=== PATIENT | female | born 1960 | race Caucasian/White ===

== ENCOUNTER 2019-03-07 05:59 | Inpatient (IN) ==
--- NOTE | 2019-02-20 16:28 | PAT Medication Instructions ---
Medication Instructions Date of Service February 20, 2019 Home Medications bupropion HCl 150 mg PO BID 02/18/19 [History Confirmed 02/18/19] clozapine 100 mg PO HS 02/18/19 [History Confirmed 02/18/19] omeprazole 20 mg PO QAM 02/18/19 [History Confirmed 02/18/19] sertraline 200 mg PO QAM 02/18/19 [History Confirmed 02/18/19] simvastatin 40 mg PO PM 02/18/19 [History Confirmed 02/18/19] topiramate 50 mg PO BID 02/18/19 [History Confirmed 02/18/19] Continue as directed bupropion HCl 150 mg PO BID 02/18/19 [History Confirmed 02/18/19] clozapine 100 mg PO HS 02/18/19 [History Confirmed 02/18/19] omeprazole 20 mg PO QAM 02/18/19 [History Confirmed 02/18/19] sertraline 200 mg PO QAM 02/18/19 [History Confirmed 02/18/19] simvastatin 40 mg PO PM 02/18/19 [History Confirmed 02/18/19] topiramate 50 mg PO BID 02/18/19 [History Confirmed 02/18/19] Other Notes If you have any questions please call us at [phone] or [phone] or [phone] or [phone]
--- NOTE | 2019-02-21 09:11 | Anesthesiology Consultation ---
Date of Service February 21, 2019 Assessment & Plan (1) Encounter for pre-operative examination: Chart Review Chart Review: Pending: Refer to Additional Notes / Consult section (pending preop testing (labs, EKG, CXR)) and Patient seen in Pre Admission Testing Teaching & Discussion Pre-Anesthesia Teaching/Discussion Notes: Instructed NPO after midnight before surgery,except medications with 15 cc of water. Medication instructions provid ed according to the PAT guidelines. History Surgery Operation Date: 03/07/19 07:45 Proposed Procedures p L3-S1 Decompression and Fusion with Spinal Cord Monitoring - Sean Kenney, Height/Weight Height: 5 ft 2 in Weight: 90.4 kg Allergies Allergy/AdvReac Type Severity Reaction Status Date / Time metoclopramide [From Reglan] Allergy Intermediate seizure-like Verified 02/21/19 09:07 activity Penicillins Allergy Mild Rash Verified 02/18/19 09:49 propoxyphene [From Darvon] Allergy Mild Rash Verified 02/18/19 09:49 Medications Home Medications Medication Instructions Recorded Confirmed Last Taken bupropion HCl 150 mg PO BID 02/18/19 02/18/19 Unknown clozapine 100 mg PO HS 02/18/19 02/18/19 Unknown omeprazole 20 mg PO QAM 02/18/19 02/18/19 Unknown sertraline 200 mg PO QAM 02/18/19 02/18/19 Unknown simvastatin 40 mg PO PM 02/18/19 02/18/19 Unknown topiramate 50 mg PO BID 02/18/19 02/18/19 Unknown Past Medical History Medical History Anxiety and depression Degenerative disc disease GERD (gastroesophageal reflux disease) controlled Hx of migraines Hyperlipidemia Neurogenic bladder hx requiring straight cath (no recent issues) Obesity Osteoarthritis Exercise / Class Metabolic Activity III < 4 Walking/Shop/Light housework Past Family History Family History Mother Family history of diabetes mellitus Grandmother (Paternal) Family hx of colon cancer Past Surgical History Surgical History History of appendectomy History of bilateral tubal ligation History of section History of cholecystectomy History of colonoscopy History of esophagogastroduodenoscopy (EGD) History of tooth extraction History of total knee replacement RT Past Anesthesia History No Hx of Anesthesia Complications and No Family Hx of Anesthesia Complications History of PONV No Hx of PONV and No Hx of Motion Sickness Social History Smoking Status: Never smoker Do You Dip or Chew Tobacco: No Hx Alcohol Use: No Hx Substance Use: No substance use type: does not use Review of Systems Reflux controlled. Patient denies chest pain, shortness of breath, cough, wheezing, palpitations. Physical Exam Vital Signs VITALS BP 120/83 P 83 TEMP 98.3 SP02 99%RA RESP 16 PHYSICAL Full neck and c-spine range of motion. Full TMJ range of motion. TMD 3 finger breaths Mallampati Score 3 Dentition: full dentures upper, edentulous Lungs: clear throughout to auscultation Cardiac: regular rate and rhythm, no murmurs noted Spine: normal Carotid arteries: negative bruit Extremities: no edema
[2019-02-21 10:12] LABS: Basophils # (auto) 0.01 K/uL (0-0.2); Basophils % (auto) 0.2 %; Hematocrit (blood only) 38.9 % (37-47); Hemoglobin 13.2 g/dL (12.0-16.0); Immature Granulocytes # (auto) 0.02 K/uL (0.00-0.02); Immature Granulocytes % (auto) 0.4 %; Lymphocytes % (auto) 34.3 %; Mean Corpuscular Hemoglobin 30.1 pg (25-34); Mean Corpuscular Hgb Conc 33.9 g/dL (32-36); Mean Corpuscular Volume 88.8 fL (80-100); Mean Platelet Volume 10.2 fL (7.4-10.4); Monocytes % (auto) 5.4 %; Neutrophils # (auto) 3.31 K/uL (1.4-6.5); Neutrophils % (auto) 59.7 %; Platelet Count 202 K/uL (130-400); RDW Coefficient of Variation 13.2 % (11.5-14.5); RDW Standard Deviation 43.1 fL (36.4-46.3); Red Blood Count 4.38 M/uL (4.2-5.4); White Blood Count 5.54 K/uL (4.8-10.8)
[2019-02-21 10:19] LABS: BUN Creatinine Ratio 14.5 (10-20); Creatinine Clr Calc Pharmacy 50.9 ml/min; Est GFR (African American) 54.4; Est GFR (Non-African American) 46.9; Potassium 3.9 mmol/L (3.5-5.1)
--- NOTE | 2019-02-21 10:29 | XRay Report ---
XR chest Pre-admission PA/Lat CLINICAL HISTORY: pat preoperative COMPARISON STUDY: No previous studies for comparison. FINDINGS: The bones soft tissues and hemidiaphragms are normal. The cardiomediastinal silhouette is n ormal. The lungs are clear. The pulmonary vasculature is normal. IMPRESSION: Negative chest. The above report was generated using voice recognition software. It may contain grammatical, syntax or spelling errors. Electronically signed by: Aiden Winchester M.D. 02/21/2019 10:28 AM
[2019-02-21 10:31] LABS: INR 0.9 (0.9-1.1); Partial Thromboplastin Ratio 0.9; Partial Thromboplastin Time 24.2 Seconds (21.0-31.0); Prothrombin Time 9.7 Seconds (9.0-12.0)
[2019-02-21 10:37] LABS: Appearance Urine Cloudy (Clear); Bacteria Urine Automated 1+ (Negative); Bilirubin Urine Negative (Negative); Blood Urine Negative (Negative); Color Urine Yellow; Epithelial Cell Urine Auto >30 /lpf (0-5); Glucose Urine UA Negative (Negative); Ketones Urine Negative (Negative); Leukocyte Esterase Urine Negative (Negative); Nitrite Urine Negative (Negative); Protein Urine Negative (Negative); RBC Urine Automated 0-4 /hpf (0-4); Urobilinogen Urine Negative (Negative); pH Urine 5.5 (4.5-7.5)
[2019-03-07] MEDS ORDERED: CeleBREX 200 MG CAP PO SCH (06:00)
[2019-03-07] MEDS ORDERED: CLINDAMYCIN 600 MG/54 ML BAG IV SCH (06:00)
[2019-03-07] MEDS ORDERED: ACETAMINOPHEN 500 MG TAB PO SCH (06:00)
[2019-03-07] MEDS ORDERED: LR 15ML/HR IV SCH (06:00)
[2019-03-07] MEDS ORDERED: GABAPENTIN 600 MG DOSE PO SCH (06:00)
[2019-03-07] MEDS ORDERED: fentaNYL citrate 100 MCG/2 ML VIAL ONE ×5 (06:49→10:34)
[2019-03-07] MEDS ORDERED: MIDAZOLAM HCL 1 MG/ML 2ML VIAL ONE (06:49)
[2019-03-07] MEDS ORDERED: HYDROmorphone INJ 2 MG/ML SYR/VIAL ONE ×2 (06:49→08:18)
[2019-03-07] MEDS ORDERED: BACITRACIN INJ 50,000 UNIT VIAL ONE (06:51)
[2019-03-07] MEDS ORDERED: EPINEPHrine INJ 1 MG/ML AMP ONE (06:52)
[2019-03-07] MEDS ORDERED: BUPIVACAINE 0.5 % 5 MG/1 ML MPF 30ML VIAL ONE (06:52)
[2019-03-07] MEDS ORDERED: ONDANSETRON INJ 2 MG/ML 2 ML VIAL IV PRN ×2 (07:17→12:40)
[2019-03-07] MEDS ORDERED: ATROPINE SULFATE 0.1 MG/ML 10ML SYR IV PRN (07:17)
[2019-03-07] MEDS ORDERED: ePHEDrine sulfate 50 MG/ML AMP IV PRN (07:17)
[2019-03-07] MEDS ORDERED: fentaNYL citrate 100 MCG/2 ML VIAL IV PRN (07:17)
[2019-03-07] MEDS ORDERED: HYDROmorphone INJ 2 MG/ML SYR/VIAL IV PRN (07:17)
--- NOTE | 2019-03-07 07:25 | History & Physical Bridge Note ---
Date of Service March 07, 2019 History & Physical Bridge Note I have examined the patient, reviewed the History & Physical and in the interval since the performance of the History & Physical I have noted the following changes of clinical significance: no changes noted
--- NOTE | 2019-03-07 07:27 | History & Physical Report ---
Date of Service March 07, 2019 Assessment & Plan (1) Neurogenic claudication due to lumbar spinal stenosis: Decompression fusion L3-S1 Present on Admission?: Yes History of Present Illness Chief Complaint: Back and bilateral leg pain Primary Care Provider: REENA Landeros This is a 50-year-old female that presents with back and bilateral leg pain. After failing extensive course of nonoperative care she is here for surgical intervention. Allergies Allergy/AdvReac Type Severity Reaction Status Date / Time metoclopramide [From Reglan] Allergy Intermediate seizure-like Verified 03/07/19 06:58 activity Penicillins Allergy Mild Rash Verified 03/07/19 06:58 propoxyphene [From Darvon] Allergy Mild Rash Verified 03/07/19 06:58 Home Medications Home Medications Medication Instructions Recorded Confirmed Type bupropion HCl 150 mg PO BID 02/18/19 03/07/19 History clozapine 100 mg PO HS 02/18/19 03/07/19 History omeprazole 20 mg PO QAM 02/18/19 03/07/19 History sertraline 200 mg PO QAM 02/18/19 03/07/19 History simvastatin 40 mg PO PM 02/18/19 03/07/19 History topiramate 50 mg PO BID 02/18/19 03/07/19 History Past Med/Surg History Family History Mother Family history of diabetes mellitus Grandmother (Paternal) Family hx of colon cancer Social History Preferred Language: Egyptian Communication Ability: Effective Client Care Consultant Required: No Beliefs That Will Affect Care: None Current Living Situation: Alone Other Information That Helps Us Care for You: No Feels Safe at Home: Yes Safety Concerns: Feels Safe At This Time Smoking Status: Never smoker Do You Dip or Chew Tobacco: No ; Second Hand Exposure: No ; Tobacco Cessation Education Requested by Patient: No Hx Alcohol Use: No Hx Substance Use: No Physical Exam Physical Exam: Patient is alert and oriented neurologically intact Results & Data Vital Signs (Past 12 Hours) Vital Signs Temp Pulse Resp BP Pulse Ox 03/07/19 07:00 36.9 C 87 18 125/79 95
[2019-03-07] MEDS ORDERED: LARYING-O-JET KIT (LTA) ONE (08:19)
[2019-03-07] MEDS ORDERED: ePHEDrine sulfate 50 MG/ML SYR ONE (08:19)
[2019-03-07] MEDS ORDERED: PROPOFOL IV EMULSION 10 MG/ML 20 ML VIAL IV ONE (08:19)
[2019-03-07] MEDS ORDERED: ONDANSETRON INJ 2 MG/ML 2 ML VIAL ONE (08:19)
[2019-03-07] MEDS ORDERED: NEOSTIGMINE METHYLSULFATE 1 MG/ML 10ML VIAL ONE (08:19)
[2019-03-07] MEDS ORDERED: DEXAMETHASONE SOD INJ 4 MG/ML VIAL ONE (08:19)
[2019-03-07] MEDS ORDERED: ROCURONIUM BROMIDE 10 MG/ML 5 ML VIAL ONE (08:19)
[2019-03-07] MEDS ORDERED: PHENYLEPHRINE 100MCG/ML 5ML SYR ONE (08:19)
[2019-03-07] MEDS ORDERED: LIDOCAINE HCL 2% 2 ML VIAL/AMP(20MG/ML) INFIL ONE (08:19)
[2019-03-07] MEDS ORDERED: GLYCOPYRROLATE 0.2 MG/ML VIAL ONE (08:19)
[2019-03-07] MEDS ORDERED: FLOSEAL HEMOSTATIC MATRIX 10ML TOP ONE (08:20)
[2019-03-07] MEDS ORDERED: ALBUMIN HUMAN 5% 12.5 GM/250 ML VIAL IV ONE (09:44)
[2019-03-07] MEDS ORDERED: SURGICEL ABSORB HEMOSTAT 2IN X 14IN TOP ONE (09:59)
--- NOTE | 2019-03-07 10:11 | Operative Report ---
Post Operative Report Pre & Post Diagnosis Operation Date: 03/07/19 07:45 Pre-Op Diagnosis: LUMBAR SPINAL STENOSIS W/NEUROGENIC CLAUDICATION Post-Op Diagnosis: LUMBAR SPINAL STENOSIS W/NEUROGENIC CLAUDICATION I identified the patient and participated in the time-out.: Yes Procedure Operation Date: 03/07/19 07:45 Actual Procedures #1 lumbar decompression bilateral medial facetectomies foraminotomies L2-3 L3-4 L4-5. #2 posterior spinal fusion L3-4 L4-5 L5-S1. #3 placement posterior segmental instrumentation L3-S1. #4 interbody fusion L3-4 L4-5 per #5 placed a peek cage 9 x 22 mm at L3-4 and 12 x 22 mm at L4-5. #6 placement of locally harvested morselized autograft in the posterior lateral gutters. #7 placement infuse collagen sponge, master graft in the posterior lateral gutters and ostial amp and interbody space. Surgeon Sean Kenney, DO Balance Screwhead Polisher Erik Cortes Estimated Blood Loss 525 Findings See Below The patient is 5 foot 2 inches tall weighing over 91 kg with a BMI in excess of 36. This combined with an EBL of greater than 500 cc created significant technical difficulty. She did require her deepest retractors and longest instruments in order to perform her procedure. This added at least 25% increase in operative time. Specimens None Indications This is a 50-year-old female who presents with above-mentioned diagnosis after failing extensive course of nonoperative care is here for surgical intervention. Description of Procedure Patient was met with identified and informed consent obtained. Patient was then taken to the operative suite underwent intubation placed in the prone position the Matthew table on top of the Matthew frame. All bony prominences well-padded eyes inspected to ensure no external pressure placed upon the peer at this point the lumbar spine was prepped and draped in a sterile fashion. Sharp dissection with the assistance of Bovie cautery was performed down to and exposing the lamina and transverse processes of L3-L4-L5 and the sacral ala bilaterally. From a caudal to cephalad fashion complete laminectomy of L4 L3 and partial laminectomy of L2 was performed including bilateral medial facetectomies and foraminotomies addressing severe stenosis. Pedicle screws were then placed in L3-L4-L5 and S1 levels bilaterally with assistance of fluoroscopy and the probably size carter placed. By way of a transforaminal approach and left complete discectomy of L4-5 was performed endplates curetted to subcortical being bone and a 12 x 22 mm peek cage filled with ostium bone graft tapped in position. Then proceeded to L3-[address] of a transforaminal approach and left complete discectomy performed endplates curetted to subcortical being bone and a 9 x 22 mm peek cage with ostium bone graft tapped in position. The rods were locked in final position bilaterally. The transverse processes of L3-L4-L5 and sacral ala bur to subcortical bleeding bone. Infuse collagen sponge master graft and local autograft placed in the posterior lateral gutters. 15 round VERENICE drain inserted. Incision was then closed with 1 Vicryl fascia 2-0 Vicryl subcutaneous and 4 Monocryl for final skin closure. Steri-Strip sterile dressing placed. Patient will continue to PACU stable disc. Please note Erik Cortes present throughout the entire procedure involved the patient positioning complex portions of the surgery and final skin closure. Lastly spinal cord monitoring was utilized that the procedure no changes noted. I attest to the content of the Intraoperative Record and any orders documented therein. Any exceptions are noted below.
--- NOTE | 2019-03-07 10:21 | Fluoroscopy Report ---
FL lumbar spine 2-3V CLINICAL HISTORY: L3-S1 DECOMPRESSION AND FUSION COMPARISON STUDY: None FLUOROSCOPY TIME: 21 seconds NUMBER OF FLUOROSCOPIC IMAGES: 2 FINDINGS: Image intensifier was utilized for intraoperative assistance for a fusion of the mid to low er lumbar spine IMPRESSION: Image intensifier utilization for lumbar laminectomy and fusion from L3 through S1. The above report was generated using voice recognition software. It may contain grammatical, syntax or spelling errors. Electronically signed by: Aiden Winchester M.D. 03/07/2019 10:20 AM
--- NOTE | 2019-03-07 11:38 | Anesthesiology Progress Note ---
Date of Service March 07, 2019 Anesthesia Post Procedure Vital Signs Vital Signs: Temp Pulse Pulse Resp BP Pulse Ox 03/07/19 11:25 83 13 121/76 95 03/07/19 11:15 86 12 118/75 95 03/07/19 11:05 85 13 121/72 98 03/07/19 10:55 94 H 12 116/80 93 03/07/19 10:45 91 H 12 116/75 93 03/07/19 10:39 37.0 C 81 19 104/69 93 03/07/19 07:00 36.9 C 87 18 125/79 95 Pain Intensity Lower Back: Pain Intensity: 5 Transfer of Care Handoff Completed per policy Notes Mental Status: alert / awake / arousable and participated in evaluation Patient Amnestic to Procedure: Yes Nausea / Vomiting: adequately controlled Pain: improving with treatment Airway Patency, RR, SpO2: stable & adequate BP & HR: stable & adequate Hydration State: stable & adequate Anesthetic Complications: no major complications apparent and Pt Satisfied with anesthetic care
[2019-03-07] MEDS ORDERED: SOD PHOSPHATE/SOD BIPHOSPHATE ENEMA 132 ML BTL PR PRN (12:40)
[2019-03-07] MEDS ORDERED: ONDANSETRON 4 MG OD TAB PO PRN (12:40)
[2019-03-07] MEDS ORDERED: PROMETHAZINE HCL 12.5 MG in SODIUM CHLORIDE 0.9% 50 ML IV PRN (12:40)
[2019-03-07] MEDS ORDERED: MAGNESIUM HYDROXIDE SUSP 30 ML UDC PO PRN (12:40)
[2019-03-07] MEDS ORDERED: HYDROmorphone INJ 0.5 MG/0.5 ML SYR IV PRN (12:40)
[2019-03-07] MEDS ORDERED: ALUMINUM/MAGNESIUM SUSP 30 ML UDC PO PRN (12:40)
[2019-03-07] MEDS ORDERED: bisacodyL 10 MG SUPP PR PRN (12:40)
[2019-03-07] MEDS ORDERED: DO NOT ADMINISTER FLU VACCINE PRN (12:40)
[2019-03-07] MEDS ORDERED: DO NOT ADMINISTER PNEUMOCOCCAL VACCINE PRN (12:40)
[2019-03-07] MEDS ORDERED: ACETAMINOPHEN 1,000 MG/100 ML VIAL IV PRN (12:40)
[2019-03-07] MEDS ORDERED: HYDROmorphone INJ 1 MG/ML SYRINGE IV PRN (12:40)
[2019-03-07] MEDS ORDERED: LORazepam 0.5 MG TAB PO PRN (12:40)
[2019-03-07] MEDS ORDERED: FAMOTIDINE 20 MG TAB PO PRN (12:40)
[2019-03-07] MEDS ORDERED: LORazepam 0.5 MG/1 ML VIAL IV PRN (12:40)
[2019-03-07] MEDS ORDERED: NALOXONE HCL 0.4 MG/1 ML VIAL/CARP IV PRN (12:40)
[2019-03-07] MEDS: SODIUM CHLORIDE 0.9% 1000ML 1,000 ML IV SCH ×2 (13:39→23:52)
--- NOTE | 2019-03-07 14:02 | Consultation ---
Date of Consultation March 07, 2019 Assessment & Plan (1) Neurogenic claudication due to lumbar spinal stenosis: S/P Lumbar Decompression/Fusion L3-S1 by Dr. Kenney POD #0 EBL 525ml, VERENICE drain 140ml tolerated procedure well: post operative somnolence due to sedation pain/wound management per ortho activity and therapy as directed by ortho bowel regimen per ortho incentive spirometry Q1hwa, wean off O2 as able Monitor H/H; Pre op H/H 13.2/38.9 (2) Bipolar depression: mood stable continue buproprion, sertraline, topamax, clozapine monitor cbc for clozapine (3) Hyperlipidemia: continue statin (4) GERD (gastroesophageal reflux disease): continue PPI (5) Obesity: BMI 36.8 encourage lifestyle modifications (6) DVT prophylaxis: SCD/TEDS Disposition: admitted to med/surg; per ortho Follow up: PCP Sis Mcgee PA-C upon discharge Pt was seen and examined in collaboration with Dr. Raymundo, please see addendum Starting 03/08/19 pt will be followed by Dr. Lee Thank you for this consultation. We will follow the patient with you during their hospital stay. You can reach a member of the [facility]ist Team 06/11 via pager @ [phone]. Supervising Physician Co-Signing Physician Notes Attending addendum: The patient was seen and examined in medical floor This is a 58 yr old F who has significant PMH of VIOLETTE intolerant to CPAP, HLD, CKD 3, Bipolar d/o who presents to [facility] for elective lumbar procedure by Dr. Kenney. She is a status post L3-S1 lumbar decompression and fusion, POD #0 She remains very drowsy but otherwise hemodynamically stable following surgery Denies any significant symptoms On examination No apparent distress at rest Chest-decreased breath sounds but otherwise clear Heart-S1-S2, regular Abdomen-benign Extremities-no edema but she cannot feel it yet Her preop labs, EKG and imaging studies reviewed She remains medically stable following surgery Agree with assessment and plan as outlined above by TERRY Mckeon Dr History of Present Illness Requesting Physician: Dr. Kenney Reason for Consultation: Post op medical management Attending Physician: Sean Kenney, DO History of Present Illness This is a 58 yr old F who has significant PMH of VIOLETTE intolerant to CPAP, HLD, CKD 3, Bipolar d/o who presents to [facility] for elective lumbar procedure by Dr. Kenney. Pt failed conservative non operative course 2/2 to lumbar spinal stenosis with neurogenic claudication. Pt is very drowsy but comfortable post operatively. ROS limited due to patient being drowsy. She does answer questions appropriately to verbal and tactile stimulation. Mild incisional pain. Denies chest pain, sob, cough, f/c/s, dizziness, n/v/d, abdominal pain. She has not had anything to eat or drink post operatively due to drowsiness. Nurse offers no other post operative complaints. Pt past medical records were reviewed in [facility]. Allergies Allergy/AdvReac Type Severity Reaction Status Date / Time metoclopramide [From Reglan] Allergy Intermediate seizure-like Verified 03/07/19 06:58 activity Penicillins Allergy Mild Rash Verified 03/07/19 06:58 propoxyphene [From Darvon] Allergy Mild Rash Verified 03/07/19 06:58 Home Medications Home Medications Medication Instructions Recorded Confirmed Type bupropion HCl 150 mg PO BID 02/18/19 03/07/19 History clozapine 100 mg PO HS 02/18/19 03/07/19 History omeprazole 20 mg PO QAM 02/18/19 03/07/19 History sertraline 200 mg PO QAM 02/18/19 03/07/19 History simvastatin 40 mg PO PM 02/18/19 03/07/19 History topiramate 50 mg PO BID 02/18/19 03/07/19 History Patient History Medical History (Updated 03/07/19 @ 13:58 by Funmi Pringle PA-C) Anxiety and depression Bipolar depression Degenerative disc disease GERD (gastroesophageal reflux disease) controlled Hx of migraines Hyperlipidemia Neurogenic bladder hx requiring straight cath (no recent issues) Obesity Osteoarthritis Surgical History History of appendectomy History of bilateral tubal ligation History of section History of cholecystectomy History of colonoscopy History of esophagogastroduodenoscopy (EGD) History of tooth extraction History of total knee replacement RT Family History Mother Family history of diabetes mellitus Grandmother (Paternal) Family hx of colon cancer Social History Preferred Language: Swedish Communication Ability: Effective 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: No Beliefs That Will Affect Care: None Current Living Situation: Alone Other Information That Helps Us Care for You: No Feels Safe at Home: Yes Safety Concerns: Feels Safe At This Time Smoking Status: Never smoker Do You Dip or Chew Tobacco: No ; Second Hand Exposure: No ; Tobacco Cessation Education Requested by Patient: No Hx Alcohol Use: No Hx Substance Use: No Review of Systems Review of Systems: All systems reviewed & are unremarkable except as noted in HPI & below Physical Exam Physical Exam: Constitutional: WD/WN, vitals as above, obese, F, lying in bed, very drowsy, arousable to tactile and verbal stimulation, easy to arouse but ease to fall back asleep, NAD Head: Normocephalic, Atraumatic Eyes: PERRL, conjunctivae normal, anicteric sclerae ENMT: external ear and nose normal, oropharynx dry mucous membranes Neck: trachea midline, no thyromegaly normal visual inspection Respiratory: normal respiratory effort, lungs clear to auscultation, no wheeze, rales, rhonchi. Normal insp/exp effort, no accessory muscle use on O2 via NC 3L @ 99% Cardiovascular: RRR, no murmur, no edema Vessels: no JVD or carotid bruit Chest: normal inspection of chest Abdomen: normal bowel sounds, soft, nontender, no hepatosplenomegaly Musculoskeletal: no cyanosis or clubbing, extremities motor strength no assess due to pt somnolence, SCD/TEDS in place, active ROM x 4 Skin: no rashes, warm and dry normal turgor Neurologic: PERRL, EOMI, accommodation nl, no face palsy, no dysarthria CN's II-XI intact bilaterally and moves all extremities Psychiatric: A+Ox3, drowsy affect Lymphatic: no cervical or axillary lymphadenopathy : holt - draining clear yellow urine Results & Data Vital Signs (Past 12 Hours) Vital Signs Temp Pulse Pulse Resp BP Pulse Ox 03/07/19 13:29 36.4 C L 64 14 103/64 98 03/07/19 12:47 36.3 C L 76 14 108/68 98 03/07/19 11:55 36.7 C 80 14 112/68 96 03/07/19 11:45 84 12 106/75 96 03/07/19 11:35 36.2 C L 81 12 116/70 96 03/07/19 11:25 83 13 121/76 95 03/07/19 11:15 86 12 118/75 95 03/07/19 11:05 85 13 121/72 98 03/07/19 10:55 94 H 12 116/80 93 03/07/19 10:45 91 H 12 116/75 93 03/07/19 10:39 37.0 C 81 19 104/69 93 03/07/19 07:00 36.9 C 87 18 125/79 95 Laboratory Results 02/21/19 pre operative lab work H/H 13.2/38.9, wbc 5.54, plt 202 CMP Na 143, K 3.9, Chl 114, Co2 23, Bun 18, Cr 1.26 Diagnostic Findings pre op CXR: IMPRESSION: Negative chest. Lumbar Spine Xray: IMPRESSION: Image intensifier utilization for lumbar laminectomy and fusion from L3 through S1 Medications Administered Sodium Chloride (Nss 1000ml) 1,000 mls @ 100 mls/hr IV .Q10H JODI Stop: 04/06/19 13:14 Last Admin: 03/07/19 13:39 Dose: 100 mls/hr Documented by: [id number] Discontinued Medications Acetaminophen (Tylenol) 1,000 mg PO PREOP JODI Stop: 03/07/19 18:00 Last Admin: 03/07/19 07:25 Dose: 1,000 mg Documented by: [id number] Bacitracin (Bacitracin) Confirm Administered Dose 50,000 units .ROUTE .STK-MED ONE Stop: 03/07/19 06:52 Last Admin: 03/07/19 08:17 Dose: 50,000 units Documented by: [id number] Bupivacaine HCl (Marcaine 0.5% Mpf) Confirm Administered Dose 30 ml .ROUTE .STK- MED ONE Stop: 03/07/19 06:53 Last Admin: 03/07/19 08:16 Dose: 30 ml Documented by: [id number] Celecoxib (Celebrex) 200 mg PO PREOP JODI Stop: 03/07/19 18:00 Last Admin: 03/07/19 07:25 Dose: 200 mg Documented by: [id number] Epinephrine HCl (Epinephrine) Confirm Administered Dose 1 mg .ROUTE .STK-MED ONE Stop: 03/07/19 06:53 Last Admin: 03/07/19 08:16 Dose: 0.15 mg Documented by: [id number] Gabapentin (Neurontin) 600 mg PO PREOP JODI Stop: 03/07/19 18:00 Last Admin: 03/07/19 07:25 Dose: 600 mg Documented by: [id number] Lactated Ringer's (Lr) 1,000 mls @ 15 mls/hr IV .Q24H JODI Stop: 03/08/19 05:59 Last Infusion: 03/07/19 07:45 Dose: 0 mls/hr Documented by: [id number] Admin: 03/07/19 07:24 Dose: 15 mls/hr Documented by: [id number] Clindamycin Phosphate (Cleocin) 600 mg in 54 mls @ 100 mls/hr IV PREOP JODI Stop: 03/08/19 05:59 Last Infusion: 03/07/19 13:01 Dose: 0 mls/hr Documented by: [id number] Admin: 03/07/19 07:44 Dose: 100 mls/hr Documented by: [id number] Miscellaneous (Floseal Hemostatic Matrix 10ml) 20 ml TOP ONCE ONE Stop: 03/07/19 08:21 Last Admin: 03/07/19 10:01 Dose: 20 ml Documented by: [id number] Miscellaneous (Surgicel Absorb Hemostat 2in X 14in) 1 ea TOP ONCE ONE Stop: 03/07/19 10:00 Last Admin: 03/07/19 10:01 Dose: 1 ea Documented by: [id number] ECG Rate (beats per minute): 77 Rhythm: normal sinus
[2019-03-07] MEDS: KETOROLAC TROMETHAMINE 15 MG/ML VIAL IV SCH ×2 (14:09→20:10)
[2019-03-07] MEDS: CLINDAMYCIN 600 MG in DEXTROSE 5% 50 ML IV SCH ×2 (16:20→23:52)
[2019-03-07] MEDS: TOPIRAMATE 50 MG TAB PO SCH (20:09)
[2019-03-07] MEDS: DOCUSATE SODIUM/SENNA 50/8.6MG TAB PO SCH (20:09)
[2019-03-07] MEDS: SIMVASTATIN 40 MG TAB PO SCH (20:10)
[2019-03-07] MEDS: BuPROPion SR 150 MG TABCR PO SCH (20:10)
[2019-03-07] MEDS: cloZAPine 100 MG TAB PO SCH (20:10)
[2019-03-08] MEDS: KETOROLAC TROMETHAMINE 15 MG/ML VIAL IV SCH ×2 (01:41→08:19)
[2019-03-08] MEDS: POLYETHYLENE (MIRALAX) 17 GM PACK PO SCH ×4 (05:20→23:29)
[2019-03-08] MEDS ORDERED: Nursing to Pharmacy Communication ONE (05:41)
[2019-03-08 05:51] LABS: Hematocrit (blood only) 28.8 % (37-47); Hemoglobin 9.6 g/dL (12.0-16.0); Immature Granulocytes # (auto) 0.03 K/uL (0.00-0.02); Immature Granulocytes % (auto) 0.4 %; Lymphocytes # (auto) 1.37 K/uL (1.2-3.4); Lymphocytes % (auto) 17.7 %; Mean Corpuscular Hgb Conc 33.3 g/dL (32-36); Mean Platelet Volume 10.3 fL (7.4-10.4); Monocytes # (auto) 0.54 K/uL (0.11-0.59); Neutrophils % (auto) 74.9 %; Platelet Count 182 K/uL (130-400); RDW Coefficient of Variation 13.4 % (11.5-14.5); RDW Standard Deviation 44.5 fL (36.4-46.3); White Blood Count 7.74 K/uL (4.8-10.8)
[2019-03-08 06:24] LABS: BUN Creatinine Ratio 13.2 (10-20); Calcium 8.3 mg/dl (8.5-10.1); Creatinine Clr Calc Pharmacy 61.9 ml/min; Est GFR (African American) 68.6; Est GFR (Non-African American) 59.2
[2019-03-08] MEDS: TOPIRAMATE 50 MG TAB PO SCH ×2 (08:19→20:11)
[2019-03-08] MEDS: BuPROPion SR 150 MG TABCR PO SCH ×2 (08:19→20:11)
[2019-03-08] MEDS: SERTRALINE HCL 100 MG TABLET PO SCH (08:19)
[2019-03-08] MEDS: PANTOprazole 40 MG TAB PO SCH (08:20)
--- NOTE | 2019-03-08 08:54 | Orthopedic Progress Note ---
Date of Service March 08, 2019 Assessment & Plan (1) Neurogenic claudication due to lumbar spinal stenosis: Overall she is doing well postoperative day 1 status post lumbar decompression fusion. We will start physical therapy today. DVT prophylaxis is in the form of teds and SCDs. Continue with pain control. Anticipate discharge home on Sunday. Supervising Physician Co-Signing Physician Notes Dr. Sean Kenney Alcides Aparicio is postoperative day 1 lumbar decompression fusion. She is doing well. She had an uneventful night. VERENICE drain total output 350 cc. H&H 9.6 and 28.8 respectively. Leg pain greatly improved. Back pain is controlled. Review of Systems Review of Systems: All systems reviewed & are unremarkable except as noted in HPI & below Physical Exam Physical Exam: Lying in bed. No obvious distress. Alert and oriented x3. Lumbar dressing is clean dry and intact. Calves soft nontender bilaterally. Strength intact bilateral lower extremities. Constitutional: WD/WN, vitals as above Eyes: normal visual gutierrez by confrontation ENMT: external ear and nose normal, oropharynx normal Neck: normal visual inspection Respiratory: normal respiratory effort Cardiovascular: Vessels: dorsalis pedis pulses present Extremities: normal capillary refill Gastrointestinal (Abdomen): Inspection/Auscultation: abdomen normal to inspection Musculoskeletal: Extremities: extremities normal to inspection and strength 5/5 throughout Skin: no rashes, warm and dry Neurologic: patellar DTR's 2+ bilat, sensation intact normal touch/pain/proprioception and moves all extremities Psychiatric: A+Ox3, euthymic affect Speech: normal rate/rhythm/volume of speech Results & Data Vital Signs (Past 12 Hours) Vital Signs Temp Pulse Resp BP Pulse Ox 03/08/19 07:40 36.4 C L 84 18 102/69 92 03/08/19 03:19 36.4 C L 71 16 100/67 92 03/07/19 23:54 36.4 C L 74 12 105/69 93
[2019-03-08] MEDS: OXYCODONE HCL IR 5 MG TAB (IMMEDIATE RELEASE) PO PRN (10:54)
--- NOTE | 2019-03-08 14:38 | Anesthesiology Progress Note ---
Date of Service March 08, 2019 Anesthesia Post Procedure Vital Signs Vital Signs: Temp Pulse Resp BP Pulse Ox 03/08/19 12:12 36.4 C L 81 18 96/67 L 93 03/08/19 07:40 36.4 C L 84 18 102/69 92 03/08/19 03:19 36.4 C L 71 16 100/67 92 03/07/19 23:54 36.4 C L 74 12 105/69 93 03/07/19 19:42 36.3 C L 79 18 100/65 95 03/07/19 15:09 36.4 C L 18 102/66 99 Pain Intensity Lower Back: Pain Intensity: 2 Notes Mental Status: alert / awake / arousable Patient Amnestic to Procedure: Yes Nausea / Vomiting: adequately controlled Pain: adequately controlled Airway Patency, RR, SpO2: stable & adequate BP & HR: stable & adequate Hydration State: stable & adequate Anesthetic Complications: no major complications apparent and Pt Satisfied with anesthetic care
[2019-03-08] MEDS: TRAMADOL HCL 50 MG TABLET PO PRN ×2 (16:23→20:15)
--- NOTE | 2019-03-08 18:34 | Hospitalist Progress Note ---
Date of Service March 08, 2019 Assessment & Plan (1) Neurogenic claudication due to lumbar spinal stenosis: S/P lumbar decompression /fusion. Doing well postop. (2) GERD (gastroesophageal reflux disease): Continue PPI. (3) Hyperlipidemia: Continue simvastatin. (4) Bipolar depression: Continue usual meds. (5) DVT prophylaxis: Per Ortho protocol. (6) Encounter for consultation: Thank you for this consultation. We will follow the patient with you during their hospital stay. My cell # is [phone]. You can reach a member of the [facility] Medicine Team 06/11 via pager @ [phone]. Subjective Recheck for postoperative medical management. Patient seen in their room around 1530. Having some postop pain. No chest pain. No cough or SOB. No nausea or vomiting. Not passing any flatus or stool yet. Torrez cath removed this morning; not voiting yet. Review of Systems: As noted above. Physical Exam Constitutional: no acute distress Respiratory: no respiratory distress Auscultation: lungs clear to auscultation bilaterally Cardiovascular: Rate/Rhythm: regular rate and regular rhythm Heart Sounds: no gallop and no cardiac rub Vessels: no JVD Extremities: no calf tend erness and no edema Gastrointestinal (Abdomen): normal bowel sounds, soft, nontender, no hepatosplenomegaly Musculoskeletal: Extremities: extremities normal to inspection (TEDS applied) Skin: no rashes, warm and dry Psychiatric: Orientation: alert and oriented x 3 Results & Data Vital Signs (Past 12 Hours) Vital Signs Temp Pulse Resp BP Pulse Ox 03/08/19 15:15 36.6 C 81 17 116/74 99 03/08/19 12:12 36.4 C L 81 18 96/67 L 93 03/08/19 07:40 36.4 C L 84 18 102/69 92 Laboratory Results 03/08/19 05:04 03/08/19 05:04
[2019-03-08] MEDS: DOCUSATE SODIUM/SENNA 50/8.6MG TAB PO SCH (20:11)
[2019-03-08] MEDS: cloZAPine 100 MG TAB PO SCH (20:11)
[2019-03-08] MEDS: SIMVASTATIN 40 MG TAB PO SCH (20:11)
[2019-03-08] MEDS ORDERED: LACTATED RINGER'S 1,000 ML IV ONE (20:24)
[2019-03-09] MEDS: POLYETHYLENE (MIRALAX) 17 GM PACK PO SCH ×4 (05:52→23:39)
[2019-03-09] MEDS: ACETAMINOPHEN 500 MG TAB PO PRN (05:56)
--- NOTE | 2019-03-09 08:48 | Orthopedic Progress Note ---
Date of Service March 09, 2019 Assessment & Plan (1) Neurogenic claudication due to lumbar spinal stenosis: We will continue physical therapy today. Maintain VERENICE drain and dressing. Continue with aggressive bowel regimen. I have put in for a CBC with differential and a Chem-7. We will consider further work-up if drowsiness continues throughout the day. Supervising Physician Co-Signing Physician Notes Dr. Sean Kenney Subjective Patient is postoperative day 2 lumbar decompression fusion. Biggest issue for the past 24 hours has been drowsiness. She is easily arousable and alert and oriented and appropriate. She is ambulatory. She did well in physical therapy yesterday. Has modest pain. She is taking Tylenol only for pain control. VERENICE drain intact. Passing flatus no bowel movement. Review of Systems Review of Systems: All systems reviewed & are unremarkable except as noted in HPI & below Physical Exam Constitutional: WD/WN, vitals as above Eyes: normal visual gutierrez by confrontation ENMT: external ear and nose normal, oropharynx normal Neck: normal visual inspection Respiratory: normal respiratory effort Cardiovascular: Vessels: dorsalis pedis pulses present Extremities: normal capillary refill Gastrointestinal (Abdomen): Inspection/Auscultation: abdomen normal to inspection Musculoskeletal: Extremities: extremities normal to inspection and strength 5/5 throughout Skin: no rashes, warm and dry Neurologic: patellar DTR's 2+ bilat, sensation intact normal touch/pain/proprioception and moves all extremities Psychiatric: A+Ox3, euthymic affect Speech: normal rate/rhythm/volume of speech Results & Data Vital Signs (Past 12 Hours) Vital Signs Temp Pulse Pulse Resp BP Pulse Ox 03/09/19 06:30 36.4 C L 108 H 20 116/77 93 03/08/19 22:58 37.6 C H 97 H 18 103/64 91
[2019-03-09 09:04] LABS: Basophils # (auto) 0.01 K/uL (0-0.2); Basophils % (auto) 0.1 %; Hematocrit (blood only) 29.4 % (37-47); Hemoglobin 9.8 g/dL (12.0-16.0); Immature Granulocytes # (auto) 0.03 K/uL (0.00-0.02); Immature Granulocytes % (auto) 0.3 %; Lymphocytes # (auto) 2.22 K/uL (1.2-3.4); Lymphocytes % (auto) 24.8 %; Mean Corpuscular Hemoglobin 30.2 pg (25-34); Mean Corpuscular Hgb Conc 33.3 g/dL (32-36); Mean Corpuscular Volume 90.5 fL (80-100); Mean Platelet Volume 9.4 fL (7.4-10.4); Monocytes # (auto) 0.51 K/uL (0.11-0.59); Monocytes % (auto) 5.7 %; Neutrophils # (auto) 6.18 K/uL (1.4-6.5); Neutrophils % (auto) 69.1 %; Platelet Count 198 K/uL (130-400); RDW Coefficient of Variation 13.8 % (11.5-14.5); RDW Standard Deviation 45.7 fL (36.4-46.3); Red Blood Count 3.25 M/uL (4.2-5.4); White Blood Count 8.95 K/uL (4.8-10.8)
[2019-03-09 09:37] LABS: BUN Creatinine Ratio 11.5 (10-20); Calcium 8.7 mg/dl (8.5-10.1); Creatinine Clr Calc Pharmacy 48.8 ml/min; Est GFR (African American) 51.4; Est GFR (Non-African American) 44.4
[2019-03-09] MEDS: PANTOprazole 40 MG TAB PO SCH (09:51)
[2019-03-09] MEDS: SERTRALINE HCL 100 MG TABLET PO SCH (11:01)
[2019-03-09] MEDS: BuPROPion SR 150 MG TABCR PO SCH ×2 (11:01→20:13)
[2019-03-09] MEDS: TOPIRAMATE 50 MG TAB PO SCH ×2 (11:01→20:13)
[2019-03-09] MEDS ORDERED: TRAMADOL HCL 50 MG TABLET PO PRN (11:49)
--- NOTE | 2019-03-09 20:04 | Hospitalist Progress Note ---
Date of Service March 09, 2019 Assessment & Plan (1) Neurogenic claudication due to lumbar spinal stenosis: S/P lumbar decompression /fusion. Doing well postop. (2) GERD (gastroesophageal reflux disease): Continue PPI. (3) Hyperlipidemia: Continue simvastatin. (4) Bipolar depression: Continue usual meds. (5) Somnolence: Experiencing some somnolence. O2 sats OK. No significant lab abnormalities. Reviewed home meds and she seems to be on usual regimen. Somnolence may be due to analgesics. Tramadol dose decreased to 50 mg PRN. (6) Urinary retention: Postop urinary retention. Had problems with urinary retention years ago, requiring intermittent straight caths. Continue bladder scans & straight caths PRN. Consult Urology if ongoing concerns. (7) DVT prophylaxis: Per Ortho protocol. (8) Encounter for consultation: Thank you for this consultation. We will follow the patient with you during their hospital stay. My cell # is [phone]. You can reach a member of the [facility] Medicine Team 06/11 via pager @ [phone]. Subjective Recheck for postoperative medical management. Patient seen in their room around 1130. Sleepy. Having less postop pain. No chest pain. No cough or SOB. No nausea or vomiting. Not passing any flatus or stool yet. Torrez cath removed yesterday. Had some spontaneous voiding, but required straight caths today for urinary retention. Review of Systems: As noted above. Physical Exam Constitutional: no acute distress Respiratory: no respiratory distress Auscultation: lungs clear to auscultation bilaterally Cardiovascular: Rate/Rhythm: regular rate and regular rhythm Heart Sounds: no gallop and no cardiac rub Vessels: no JVD Extremities: no calf tenderness and no edema Gastrointestinal (Abdomen): normal bowel sounds, soft, nontender, no hepatosplenomegaly Musculoskeletal: Extremities: extremities normal to inspection (TEDS applied) Skin: no rashes, warm and dry Psychiatric: Orientation: oriented x 3; + not alert ((a bit somnolent)) Results & Data Vital Signs (Past 12 Hours) Vital Signs Temp Pulse Resp BP Pulse Ox 03/09/19 15:18 36.7 C 98 H 17 127/83 96 03/09/19 13:00 93 Laboratory Results 03/09/19 08:55 03/09/19 08:55
[2019-03-09] MEDS: DOCUSATE SODIUM/SENNA 50/8.6MG TAB PO SCH (20:13)
[2019-03-09] MEDS: cloZAPine 100 MG TAB PO SCH (20:13)
[2019-03-09] MEDS: SIMVASTATIN 40 MG TAB PO SCH (20:13)
[2019-03-10] MEDS: POLYETHYLENE (MIRALAX) 17 GM PACK PO SCH ×4 (05:18→23:32)
[2019-03-10] MEDS: PANTOprazole 40 MG TAB PO SCH (08:39)
[2019-03-10] MEDS: BuPROPion SR 150 MG TABCR PO SCH ×2 (08:39→20:27)
[2019-03-10] MEDS: SERTRALINE HCL 100 MG TABLET PO SCH (08:39)
[2019-03-10] MEDS: TOPIRAMATE 50 MG TAB PO SCH ×2 (08:39→20:26)
[2019-03-10] MEDS: OXYCODONE HCL IR 5 MG TAB (IMMEDIATE RELEASE) PO PRN ×2 (08:59→17:52)
--- NOTE | 2019-03-10 12:51 | Hospitalist Progress Note ---
Date of Service March 10, 2019 Assessment & Plan (1) Neurogenic claudication due to lumbar spinal stenosis: S/P lumbar decompression /fusion. POD # 3. (2) GERD (gastroesophageal reflux disease): Continue PPI. (3) Hyperlipidemia: Continue simvastatin. (4) Bipolar depression: Continue usual meds. (5) Somnolence: Experiencing some somnolence yesterday. O2 sats OK. No significant lab abnormalities. Reviewed home meds and she seems to be on usual regimen. Somnolence may been due to analgesics. Tramadol dose decreased to 50 mg PRN. Improved. (6) Urinary retention: Postop urinary retention. Had problems with urinary retention years ago, requiring intermittent straight caths. Torrez catheter reinserted. Options: keep Torrez in for now with eventual voiding trial DC Torrez and continue straight caths as needed consult Urology (7) DVT prophylaxis: Per Ortho protocol. (8) Encounter for consultation: Thank you for this consultation. We will follow the patient with you during their hospital stay. My cell # is [phone]. You can reach a member of the [facility] Medicine Team 06/11 via pager @ [phone]. Subjective Recheck for postoperative medical management. Patient seen in their room around 0920. Not as somnolent. Still having postop pain. No chest pain. No cough or SOB. No nausea or vomiting. Passing flatus, but no stool yet. Torrez cath reinserted yesterday for urinary retention. Review of Systems: As noted above. Physical Exam Constitutional: no acute distress Respiratory: no respiratory distress Auscultation: lungs clear to auscultation bilaterally Cardiovascular: Rate/Rhythm: regular rate and regular rhythm Heart Sounds: no gallop and no cardiac rub Vessels: no JVD Extremities: no calf tenderness and no edema Gastrointestinal (Abdomen): normal bowel sounds, soft, nontender, no hepatosplenomegaly Musculoskeletal: Extremities: extremities normal to inspection (SCDs applied) Skin: no rashes, warm and dry Psychiatric: Orientation: alert and oriented x 3 Results & Data Vital Signs (Past 12 Hours) Vital Signs Temp Pulse Pulse Resp BP Pulse Ox 03/10/19 12:31 37.0 C 80 21 112/72 03/10/19 07:47 36.5 C 101 H 21 120/82 92 03/10/19 06:09 36.8 C 98 H 16 128/85 96
--- NOTE | 2019-03-10 12:57 | Orthopedic Progress Note ---
Date of Service March 10, 2019 Assessment & Plan (1) Neurogenic claudication due to lumbar spinal stenosis: This time we will continue physical therapy were investigating possible rehab placement hopefully as soon as tomorrow. Present on Admission?: Yes Subjective Patient's back pain is controlled leg symptoms improved. Physical Exam Physical Exam: Patient is neurologically intact alert and oriented today. Results & Data Vital Signs (Past 12 Hours) Vital Signs Temp Pulse Pulse Resp BP Pulse Ox 03/10/19 12:31 37.0 C 80 21 112/72 03/10/19 07:47 36.5 C 101 H 21 120/82 92 03/10/19 06:09 36.8 C 98 H 16 128/85 96
[2019-03-10] MEDS: cloZAPine 100 MG TAB PO SCH (20:27)
[2019-03-10] MEDS: SIMVASTATIN 40 MG TAB PO SCH (20:27)
[2019-03-10] MEDS: DOCUSATE SODIUM/SENNA 50/8.6MG TAB PO SCH (20:27)
[2019-03-11] MEDS: POLYETHYLENE (MIRALAX) 17 GM PACK PO SCH (05:43)
[2019-03-11] MEDS: ACETAMINOPHEN 500 MG TAB PO PRN (05:45)
[2019-03-11] MEDS: TOPIRAMATE 50 MG TAB PO SCH (09:04)
[2019-03-11] MEDS: BuPROPion SR 150 MG TABCR PO SCH (09:04)
[2019-03-11] MEDS: SERTRALINE HCL 100 MG TABLET PO SCH (09:05)
[2019-03-11] MEDS: PANTOprazole 40 MG TAB PO SCH (09:05)
--- NOTE | 2019-03-11 10:55 | Discharge Summary ---
Date of Service March 11, 2019 Admission HPI Per Admitting Provider This is a 50-year-old female that presents with back and bilateral leg pain. After failing extensive course of nonoperative care she is here for surgical intervention. Principal Diagnosis Lumbar spinal stenosis with neurogenic claudication Discharge Data Allergies Allergy/AdvReac Type Severity Reaction Status Date / Time metoclopramide [From Reglan] Allergy Intermediate seizure-like Verified 03/07/19 06:58 activity Penicillins Allergy Mild Rash Verified 03/07/19 06:58 propoxyphene [From Darvon] Allergy Mild Rash Verified 03/07/19 06:58 Consultations 03/07/19 12:40 Consult Case Management - Discharge Planning Routine Consult Hospitalist Routine Procedures Performed Operation Date: 03/07/19 07:45 Actual Procedures p L3-S1 Decompression and Fusion with Spinal Cord Monitoring, Interbody L3-L4 and L4-L5(Not Applicable) - Sean Kenney DO Ordered Studies 03/07/19 07:45 FL fluoroscopy <1hr Routine FL lumbar spine 2-3V Routine Hospital Course (1) Neurogenic claudication due to lumbar spinal stenosis: Patient underwent multilevel lumbar decompression fusion tolerated as well as taken to orthopedic for postoperative persistent postop pain when she was up and ambulating progressed throughout the weekend she was somewhat somnolent we discontinued all of her narcotic medications. This is improved her status dramatically. Her bowels working well. On the day of discharge she was in the chair at bedside good strength testing comfortable. Discharge orders instructions from the chart for further review. Total Time Total Time Spent Total Time Spent (In Minutes): 20 minutes Discharge Plan Discharge Items Patient Disposition: Home - Home Health Services Reason For Visit: LUMBAR SPINAL STENOSIS W/NEUROGENIC CLAUDICATION Discharge Diagnosis: Lumbar spinal stenosis with neurogenic claudication Activity: As commented below Non-emergency contact: Primary Care Provider Call non-emergency contact if: you have any medication questions Follow-up/Referrals: Sis Mcgee PA [Primary Care Provider] - Diet: Regular Addtl Attending Provider Instructions: ACTIVITY RECOMMENDATIONS: SELF CARE INSTRUCTIONS AFTER THORACIC/LUMBAR FUSIONS 1. You may walk to your tolerance. It is good exercise for your legs and back. Expect some back and intermittent leg aches and pains. 2. You may perform "counter-top" level activities (make a sandwich, fatoumata with a project, etc.). 3. No bending or lifting of more than 10 pounds or back twisting of any nature (roll like a log when turning in bed). 4. You may ride in a car for 20-30 minutes at a time. No driving until after your first visit with your doctor. 5. Frequent changes of position and restricting sitting to 30 minutes at a time will help limit the amount of back spasms and stiffness you may experience. 6. You may discontinue the use of ambulatory aids (cane, crutches, etc.) once your strength and confidence allow. 7. You may yarding and folding machine operator the shower and let water strike your incision when you arrive home at least once daily. Do not take a tub bath, sit in a hot tub or go into a swimming pool until after your first recheck in the office. SPECIAL CARE INSTRUCTIONS: VERY IMPORTANT TO READ AND REVIEW A. Your surgical incision has been closed with a cosmetic suture under the skin that will dissolve in about 6 weeks. In 14 days, you can use a pair of clean scissors and cut the suture that is left outside of the skin at the ends of your incision. 1. The small skin tapes can be removed 7 days after surgery if they have not fallen off by that point. 2. You may keep the wound open to air as much as possible to promote healing after post-op day number 5 unless told otherwise by your doctor. 3. If you think the wound looks like it is becoming infected (redness or worsening drainage) and/or you are experiencing fever, chill or worsening back pain and muscle spasms, contact the office so that we may evaluate you as soon as possible. B. Complications are uncommon, but please contact us if you have any signs or symptoms of: 1. wound infection (fever higher than 102.5 degrees F, redness, separation of wound, drainage, or increasing pain from the incision) 2. blood clots in legs (pain, swelling, redness and warmth in legs) 3. urinary tract infection (fever higher than 102.5 degrees F, burning upon urination or increased frequency of urination) 4. nerve problems (inability to walk on your toes or heels, numbness, loss of bowel or bladder control) 5. any other symptoms that concern you C. Please call the office at if you have any concerns or questions about your operation or recovery. D. No smoking! Smoking drastically decreases the chance of a solid fusion. E. Do not take any anti-inflammatory medications (Indocin, Advil, Motrin, Aspirin, Naprosyn, etc.) as these may inhibit the chance of a solid fusion. Tylenol is okay to take for pain. MANAGING PAIN AFTER SPINAL SURGERY 1. Narcotic medication is intended for short-term use and will be provided for surgical pain. Surgical pain usually lasts for a period of 4-6 weeks. Narcotic medication includes Percocet, Vicodin, Darvocet, Tylenol #3 or Lortab. 2. Longer-term pain is more appropriately treated with non-narcotic medication such as Tylenol ES. 3. Muscle spasm is not appropriately treated with narcotics. Muscle relaxers such as Soma, Flexeril or Skelaxin can be used along with Tylenol ES. 4. Remember that we all live with some "aches and pains". This is not unusual or uncommon after an injury or as we get older. a. Back pain is expected and may include muscle spasms for 4 to 6 weeks after surgery. The pain should gradually improve. If the pain worsens for no apparent reason, please contact the office. b. Intermittent leg pain may also be experienced and should not be concerned about unless it worsens for no apparent reason. If so, please contact the office. 5. We will provide appropriate medication within the normal guidelines of their prescribed use. We will also be very cautious and aware of potential abuse and extended duration of patients' medication needs. a. Pain medications are for your comfort and to assist with sleep and rest so that the tissue can heal. They are not provided in order to return to normal activity and should not be used through the day. To do so or worsening pain at night can result from ongoing tissue damage and development of tolerance to the prescribed medicine. 6. Please allow 2-3 days to process refills. Prescriptions will not be mailed but must be picked up at the office. FOLLOW UP VISIT: Keep your scheduled follow-up appointment. Any questions, please call the office at . Pending Studies at Discharge: No Stand-Alone Forms: My [employer], Smoking Cessation Medications and DC Order Prescriptions: Continued bupropion HCl 150 mg Tablet Sustained-Release 12 Hr 150 mg PO BID RF: 0 clozapine 100 mg Tablet 100 mg PO HS RF: 0 sertraline 100 mg Tablet 200 mg PO QAM RF: 0 simvastatin 40 mg Tablet 40 mg PO PM RF: 0 topiramate 50 mg Tablet 50 mg PO BID RF: 0 omeprazole 20 mg Tablet,Delayed Release (Dr/Ec) 20 mg PO QAM RF: 0 Discharge Orders: Discharge Order (Routine); Ordered 03/11/19 Ordered By: Sean Kenney Admission Data Admit Date/Time: 03/07/19 11:08 Attending Provider: Sean Kenney Admit Provider: Sean Kenney Primary Care Provider: Sis Mcgee Other Providers: Parish Lee ; [facility]
--- NOTE | 2019-03-11 19:58 | Hospitalist Progress Note ---
Date of Service March 11, 2019 Assessment & Plan (1) Neurogenic claudication due to lumbar spinal stenosis: S/P lumbar decompression /fusion. POD # 4. (2) GERD (gastroesophageal reflux disease): Continue PPI. (3) Hyperlipidemia: Continue simvastatin. (4) Bipolar depression: Continue usual meds. (5) Somnolence: Experiencing some somnolence yesterday. O2 sats OK. No significant lab abnormalities. Reviewed home meds and she seems to be on usual regimen. Somnolence may been due to analgesics. Tramadol dose decreased to 50 mg PRN. Improved. (6) Urinary retention: Postop urinary retention. Had problems with urinary retention years ago, requiring intermittent straight caths. Torrez catheter reinserted. Patient opts to keep Torrez catheter in place for now and to see her Urologist soon for follow-up. (7) DVT prophylaxis: Per Ortho protocol. (8) Encounter for consultation: Thank you for this consultation. Please call if you have any questions. My cell # is [phone]. You can reach a member of the [facility] Medicine Team 06/11 via pager @ [phone]. Subjective Recheck for postoperative medical management. Patient seen in their room around 1230. Doing better. Not as somnolent. Less postop pain. No chest pain. No cough or SOB. No nausea or vomiting. Passing flatus and stool. Still has Torrez cath for urinary retention. Review of Systems: As noted above. Physical Exam Constitutional: no acute distress Respiratory: no respiratory distress Auscultation: lungs clear to auscultation bilaterally Cardiovascular: Rate/Rhythm: regular rate and regular rhythm Heart Sounds: no gallop and no cardiac rub Vessels: no JVD Extremities: no calf tenderness and no edema Gastrointestinal (Abdomen): normal bowel sounds, soft, nontender, no hepatosplenomegaly Skin: no rashes, warm and dry Psychiatric: Orientation: alert and oriented x 3
--- NOTE | 2019-03-18 06:40 | Coding Query ---
CODING QUERY To promote full compliance with coding requirements relating to patient care, provider participation is requested in all cases of vehicle window tinter uncertainty. Please assist us with the question(s) below: Coding Question(s): Patient s/p spinal fusion,multiple lumbar levels. HCT post op fell from 13 to 9.6. EBL 525 cc. 2400 cc perioperative fluid resuscitation. Please document , if applicable , the diagnosis that was treated. Thanks for your help! Yimi Oscar [facility] Physician's Response(s): Acute anemia secondary to intraoperative blood loss Principal Diagnosis: "that condition established after study, to be chiefly responsible for occasioning the admission of the patient to the hospital for care." Co-Existing Principal Diagnosis: "when two or more diagnoses equally meet the criteria for principal diagnosis as determined by the circumstances of admission, diagnostic work up, and/or therapy provided, and the Alphabetic Index, Tabular List, or another coding guideline does not provide sequencing direction, any one of the diagnoses may be sequenced first." "When the physician has documented what appears to be a current diagnosis in the body of the record, but has not included the diagnosis in the final diagnostic statement, the physician should be asked whether the diagnosis should be added." ([facility] 2 QTR90. p3-4) SORIN
== END 2019-03-11 14:50 | disposition home health service (06) | DRG 454 ==
LOC: ASU 05:59 → 3E 11:08

== ENCOUNTER 2024-12-05 08:55 | Inpatient (IN) ==
--- NOTE | 2024-11-11 15:12 | PAT Medication Instructions ---
Medication Instructions Date of Service November 11, 2024 Home Medications bupropion HCl 150 mg tablet,12 hr sustained-release (Wellbutrin SR) 150 mg PO BID clozapine 100 mg tablet (Clozaril) 100 mg PO HS omeprazole 20 mg tablet,delayed release 20 mg PO QAM sertraline 100 mg tablet 200 mg PO QAM simvastatin 40 mg tablet (Zocor) 40 mg PO QPM topiramate 50 mg tablet (Topamax) 50 mg PO BID Take morning of surgery With a small sip of water, OTHERWISE NOTHING TO EAT OR DRINK AFTER MIDNIGHT: bupropion HCl 150 mg tablet,12 hr sustained-release (Wellbutrin SR) 150 mg PO BID omeprazole 20 mg tablet,delayed release 20 mg PO QAM sertraline 100 mg tablet 200 mg PO QAM topiramate 50 mg tablet (Topamax) 50 mg PO BID Take evening before surgery bupropion HCl 150 mg tablet,12 hr sustained-release (Wellbutrin SR) 150 mg PO BID clozapine 100 mg tablet (Clozaril) 100 mg PO HS simvastatin 40 mg tablet (Zocor) 40 mg PO QPM topiramate 50 mg tablet (Topamax) 50 mg PO BID Other Notes If you have any questions please call us at [phone] or [phone] or [phone] or [phone]
--- NOTE | 2024-11-17 12:10 | Anesthesiology Consultation ---
Date of Service November 17, 2024 Assessment & Plan (1) Encounter for pre-operative examination: - Infectious disease screening: Per assessment on 11/17/24- No known recent infectious disease contacts or current infectious disease symptoms. - Patient acceptable risk for surgery pending surgeon-ordered PCP preop evaluation (DMITRI Manuel, appt 12/02). Chart Review Chart Review: Patient seen in Pre Admission Testing Teaching & Discussion Pre-Anesthesia Teaching/Discussion Notes: Instructed NPO after midnight before surgery,except medications with 15 cc of water. Medication instructions provided according to the PAT guidelines. History Surgery Operation Date: 12/05/24 11:05 Proposed Procedures p L2-L3 Decompression and Fusion Connecting to Previous Hardware - Sean Kenney, Height/Weight Height: 5 ft 2 in Weight: 81.1 kg Allergies Allergy/AdvReac Type Severity Reaction Status Date / Time metoclopramide [From Reglan] Allergy Severe Seizure-like Verified 11/11/24 15:15 activity Penicillins Allergy Intermediate Rash Verified 11/11/24 14:03 propoxyphene [From Darvon] Allergy Intermediate Rash Verified 11/11/24 14:03 Medications Home Medications Medication Instructions Recorded Confirmed Last Taken bupropion HCl 150 mg tablet,12 hr 150 mg PO BID 02/18/19 11/11/24 03/06/19 19:30 sustained-release (Wellbutrin SR) clozapine 100 mg tablet (Clozaril) 100 mg PO HS 02/18/19 11/11/24 03/06/19 07:30 omeprazole 20 mg tablet,delayed 20 mg PO QAM 02/18/19 11/11/24 03/06/19 07:30 release sertraline 100 mg tablet 200 mg PO QAM 02/18/19 11/11/24 03/06/19 07:30 simvastatin 40 mg tablet (Zocor) 40 mg PO QPM 02/18/19 11/11/24 03/06/19 19:30 topiramate 50 mg tablet (Topamax) 50 mg PO BID 02/18/19 11/11/24 03/06/19 19:30 Past Medical History Medical History Anxiety and depression Bipolar disorder Chronic back pain [facility] Degenerative disc disease GERD (gastroesophageal reflux disease) Per records Hx of migraines Hyperlipidemia Per records IBS (irritable bowel syndrome) Neurogenic bladder Hx requiring straight cath No recent issues/no longer needs to straight cath Obesity Osteoarthritis Stage 3 chronic kidney disease Exercise / Class Metabolic Activity III < 4 Walking/Shop/Light housework Past Family History Family History Mother Family history of diabetes mellitus Grandmother (Paternal) Family hx of colon cancer Past Surgical History Surgical History History of appendectomy History of bilateral tubal ligation History of section x1 History of cholecystectomy History of colonoscopy History of esophagogastroduodenoscopy (EGD) History of hernia repair History of lumbar surgery L3-S1 decompression/fusion (2019) History of tooth extraction No dentures History of total knee replacement Right Past Anesthesia History No Hx of Anesthesia Complications and No Family Hx of Anesthesia Complications History of PONV No Hx of PONV and No Hx of Motion Sickness Social History Smoking Status: Never smoker Do You Dip or Chew Tobacco: No Hx Alcohol Use: No Hx Substance Use: No substance use type: does not use Review of Systems Chronic VOGT, stable. Patient denies chest pain, fever, chills, cough, wheezing. Physical Exam Vital Signs BP 113/81 P 89 TEMP 97.5 SP02 98%RA RESP 18 Physical Full cervical extension range of motion. Full TMJ range of motion. TMD 3 finger breaths Mallampati Score III Dentition: edentulous Lungs: clear throughout to auscultation Cardiac: regular rate and rhythm, no murmurs noted Spine: normal Carotid arteries: negative bruit Extremities: no LE edema Lab Results Anesthesia Preop Results Results Anesthesia Widget: Na 140 mmol/L (136-145) 11/17/24 K 3.8 mmol/L (3.5-5.1) 11/17/24 Cl 110 mmol/L (98-107) H 11/17/24 CO2 22 mmol/L (21-32) 11/17/24 BUN 18 mg/dl (6-23) 11/17/24 Creat 1.10 mg/dl (0.6-1.2) 11/17/24 Glucose Level 92 mg/dl (70-99(Fasting)) 11/17/24 PT 9.8 Seconds (9.0-12.0) 11/17/24 PTT 27 Seconds (21-31) 11/17/24 INR 0.9 (0.9-1.1) 11/17/24 Urine Color Yellow 11/17/24 Urine Appearance Cloudy (Clear) A 11/17/24 Urine pH 5.5 (4.5-7.5) 11/17/24 Urine Specific [place] 1.016 (1.000-1.030) 11/17/24 Urine Protein Negative (Negative) 11/17/24 Urine Glucose (UA) Negative (Negative) 11/17/24 Urine Ketones Negative (Negative) 11/17/24 Urine Blood Negative (Negative) 11/17/24 Urine Nitrite Negative (Negative) 11/17/24 Urine Bilirubin Negative (Negative) 11/17/24 Urine Urobilinogen Negative (Negative) 11/17/24 Urine Leukocyte Esterase Trace (Negative) H 11/17/24 Urine WBC (Auto) 6-10 /hpf (0-5) H 11/17/24 Urine RBC (Auto) 3-5 /hpf (0-2) H 11/17/24 Urine Hyaline Casts (Auto) 3-5 /lpf (0-2) H 11/17/24 Urine Epithelial Cells (Auto) 11-20 /hpf (0-2) H 11/17/24 Urine Bacteria (Auto) 3+ (None Seen) H 11/17/24 Blood Type B Positive 11/17/24 Antibody Screen NEGATIVE 11/17/24 Testing Laboratory Results Positive bacteria on surgeon-ordered preop UA. Urine culture not performed per [facility] lab as it did not meet criteria for culture analysis (did not have positive nitrites or WBC > 10; surgeon's office made aware) 10/31/24 WBC 7.98 H/H 14.0/42.8 PLATELETS 247 Electrocardiogram Date: 11/17/24 NSR at 81bpm. LAFB. PRWP, consider anterior W[place] vs lead placement vs LVH. 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 Echocardiogram Date: 01/02/22 LVEF 59%. LV wall motion is normal. Grade I DD. No significant valvular disease. Stress Test Date: 01/02/22 Type: nuclear LVEF > 70%. Gated SPECT images reveal normal myocardial thickening and wall motion. Lexiscan nuclear cardiac stress test negative for ischemia. Other Testing Chest CT Date: 07/11/24 Dependent atelectasis. No consolidation. Small bone island in the T2 vertebral artery. Subcentimeter solid pulmonary nodules, some of which are new compared to prior. "Recommend CT chest at 3-6 months."
[~2024-12-05 08:55] MED LIST: DEXAMETHASONE SOD INJ 4 MG/ML VIAL ONE; LIDOCAINE 2% 2 ML VIAL/AMP(20MG/ML) INFIL ONE; MIDAZOLAM HCL 1 MG/ML 2ML VIAL ONE; ONDANSETRON INJ 2 MG/ML 2 ML VIAL ONE; PROPOFOL IV EMULSION 10 MG/ML 20 ML VIAL IV ONE; ROCURONIUM BROMIDE 10 MG/ML 5 ML VIAL IV ONE
[2024-12-05] MEDS: LR 60ML/HR IV SCH (09:20)
[2024-12-05] MEDS: LR 15ML/HR IV SCH (09:20)
[2024-12-05] MEDS: CeleBREX 200 MG CAP PO SCH (09:21)
[2024-12-05] MEDS: GABAPENTIN 600 MG DOSE PO SCH (09:21)
[2024-12-05] MEDS: VANCOMYCIN HCL 1,250 MG in SODIUM CHLORIDE 0.9% 250 ML IV SCH (09:21)
--- NOTE | 2024-12-05 09:52 | History & Physical Bridge Note ---
Date of Service December 05, 2024 History & Physical Bridge Note I have examined the patient, reviewed the History & Physical and in the interval since the performance of the History & Physical I have noted the following changes of clinical significance: no changes noted
--- NOTE | 2024-12-05 09:53 | History & Physical Report ---
Date of Service December 05, 2024 Assessment & Plan (1) Neurogenic claudication due to lumbar spinal stenosis: Plan: L2-L3 decompression fusion connecting to previous hardware History of Present Illness Chief Complaint: Back and leg pain Primary Care Provider: REENA Landeros This is a 63-year-old female who presents with chronic persistent back and leg pain failing course of nonoperative care is here for surgical invention. Allergies Allergy/AdvReac Type Severity Reaction Status Date / Time metoclopramide [From Reglan] Allergy Severe Seizure-like Verified 12/05/24 09:38 activity Penicillins Allergy Intermediate Rash Verified 12/05/24 09:38 propoxyphene [From Darvon] Allergy Intermediate Rash Verified 12/05/24 09:38 Home Medications Medication Instructions Recorded Confirmed Type bupropion HCl 150 mg tablet,12 hr 150 mg PO BID 02/18/19 12/05/24 History sustained-release (Wellbutrin SR) clozapine 100 mg tablet (Clozaril) 100 mg PO HS 02/18/19 12/05/24 History omeprazole 20 mg tablet,delayed 20 mg PO QAM 02/18/19 12/05/24 History release sertraline 100 mg tablet 200 mg PO QAM 02/18/19 12/05/24 History simvastatin 40 mg tablet (Zocor) 40 mg PO QPM 02/18/19 12/05/24 History topiramate 50 mg tablet (Topamax) 50 mg PO BID 02/18/19 12/05/24 History Past Med/Surg History Problem List Bipolar depression Neurogenic claudication due to lumbar spinal stenosis Encounter for pre-operative examination Medical History Anxiety and depression Bipolar disorder Chronic back pain [facility] Degenerative disc disease GERD (gastroesophageal reflux disease) Per records Hx of migraines Hyperlipidemia Per records IBS (irritable bowel syndrome) Neurogenic bladder Hx requiring straight cath No recent issues/no longer needs to straight cath Obesity Osteoarthritis Stage 3 chronic kidney disease Surgical History History of appendectomy History of bilateral tubal ligation History of section x1 History of cholecystectomy History of colonoscopy History of esophagogastroduodenoscopy (EGD) History of hernia repair History of lumbar surgery L3-S1 decompression/fusion (2019) History of tooth extraction No dentures History of total knee replacement Right Family History Mother Family history of diabetes mellitus Grandmother (Paternal) Family hx of colon cancer Social History Smoking Status: Never smoker Second Hand Exposure: No; Do You Dip or Chew Tobacco: No; Tobacco Cessation Education Requested by Patient: No Hx Alcohol Use: No Hx Substance Use: No Preferred Language: Wallisian Communication Ability: Effective Snowmobile 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
[2024-12-05] MEDS ORDERED: ONDANSETRON INJ 2 MG/ML 2 ML VIAL IV PRN (09:54)
[2024-12-05] MEDS ORDERED: HYDROmorphone INJ 2 MG/ML SYR/VIAL IV PRN (09:54)
[2024-12-05] MEDS ORDERED: PROMETHAZINE HCL 6.25 MG in SODIUM CHLORIDE 0.9% 50 ML IV PRN (09:54)
[2024-12-05] MEDS ORDERED: ATROPINE SULFATE 0.1 MG/ML 10ML SYR IV PRN (09:54)
[2024-12-05] MEDS: BUPIVACAINE/EPINEPHRINE 0.25% 1:200,000 30 ML VIAL ONE (11:08)
[2024-12-05] MEDS: ceFAZolin 330 MG/ML 1 GM VIAL ONE (11:39)
[2024-12-05] MEDS: FLOSEAL HEMOSTATIC MATRIX 10ML TOP ONE (12:05)
[2024-12-05] MEDS ORDERED: SUGAMMADEX SODIUM 200 MG/2 ML VIAL IV ONE (12:13)
--- NOTE | 2024-12-05 12:13 | Operative Report ---
Post Operative Report Pre & Post Diagnosis Operation Date: 12/05/24 11:05 Pre-Op Diagnosis: #1 lumbar spondylosis with radiculopathy #2 neurogenic claudication due to lumbar spinal stenosis L2-L3 Post-Op Diagnosis: Same I identified the patient and participated in the time-out.: Yes Procedure Operation Date: 12/05/24 11:05 Actual Procedures #1 lumbar decompression bilateral medial facetectomies and foraminotomies L2-L3. #2 posterior spinal fusion L2-L3. #3 placed posterior instrumentation with pedicle screws and L2 and connectors at L3-L4. #4 interbody fusion L2-L3. #5 placement Spira 9 x 26 mm L2-L3. #6 placement locally harvested morselized autograft and posterior gutters. #7 placement of Proteus, with Koros in the posterior lateral gutters and versa wrap of the exposed dura. Surgeon Sean Kenney, Echocardiographer Erik Sam Estimated Blood Loss 200 Findings Consistent with Post-Op Diagnosis Specimens None Indications This is a 63-year-old female who presents manage diagnosis after failed course of nonoperative care is here for surgical invention. Description of Procedure Patient was met with identified abdominal pain. Patient was then taken to the operative suite underwent intubation placed in a prone position on the Matthew table on top of the Matthew frame. All bony prominences well-padded eyes inspected to ensure no external pressure placed upon them. This point the lumbar spine was prepped and draped in sterile fashion. Sharp dissection with the assistance of Bovie cautery performed down to exposing the lamina and transverse processes of L2 and the instrumentation between L4 3 L4. Then performed a complete laminectomy L2 with bilateral medial facetectomies and foraminotomies addressing severe neural compression. Pedicle screws were then placed in L2 and connectors attached to the carter at L3-L4. By way the transforaminal approach on the left complete discectomy of L2-L3 was performed endplates guided to subcortical bone and 9 x 26 mm spiral cage filled with os design bone graft tapped in position. The probe size rods were then placed and locked in a final position bilaterally. The transverse processes of L2-L3 burred to subcortical bleeding bone. Proteus combined with Koros and local autograft placed in posterior gutters. First wrap placed over the exposed dura. 15 round VERENICE inserted. The incision was then closed with 1 Vicryl the fascia 2- 0 Vicryl subcutaneously and 4 Monocryl for final skin closure. Steri-Strips sterile dressing placed. Patient waken taken to PACU stable condition. Please note Erik record was present at the entire procedure about the patient positioning complex course of the surgery and final skin closure. I attest to the content of the Intraoperative Record and any orders documented therein. Any exceptions are noted below.
--- NOTE | 2024-12-05 15:04 | Anesthesiology Progress Note ---
Date of Service December 05, 2024 Anesthesia Post Procedure Vital Signs Vital Signs: Temp Pulse Pulse Resp BP Pulse Ox O2 Del Method 12/05/24 14:00 71 24 118/82 98 Oxymask 12/05/24 13:50 66 16 109/81 99 Oxymask 12/05/24 13:40 71 16 116/78 100 Oxymask 12/05/24 13:30 75 15 108/72 99 Oxymask 12/05/24 13:20 77 13 118/81 98 Oxymask 12/05/24 13:10 75 17 125/82 98 Oxymask 12/05/24 13:00 74 13 117/71 99 Oxymask 12/05/24 12:50 73 13 114/71 99 Oxymask 12/05/24 12:40 73 15 114/72 99 Oxymask 12/05/24 12:31 36 C L 76 18 100/64 96 Oxymask 12/05/24 09:22 36.5 C 82 22 140/100 98 Room Air O2 Flow Rate 12/05/24 14:00 2 12/05/24 13:50 2 12/05/24 13:40 4 12/05/24 13:30 4 12/05/24 13:20 4 12/05/24 13:10 4 12/05/24 13:00 4 12/05/24 12:50 8 12/05/24 12:40 8 12/05/24 12:31 8 12/05/24 09:22 Pain Intensity Bilateral Back: Pain Intensity: 4 Transfer of Care Handoff Completed per policy Notes Mental Status: alert / awake / arousable Patient Amnestic to Procedure: Yes Nausea / Vomiting: adequately controlled Pain: adequately controlled Airway Patency, RR, SpO2: stable & adequate BP & HR: stable & adequate Hydration State: stable & adequate Anesthetic Complications: no major complications apparent and Pt Satisfied with anesthetic care
[2024-12-05] MEDS ORDERED: ONDANSETRON 4 MG OD TAB PO PRN (16:25)
[2024-12-05] MEDS ORDERED: METOCLOPRAMIDE HCL INJ 5 MG/ML 2 ML VIAL IV PRN (16:25)
[2024-12-05] MEDS ORDERED: MAGNESIUM HYDROXIDE SUSP 30 ML UDC PO PRN (16:25)
[2024-12-05] MEDS ORDERED: ALUMINUM/MAGNESIUM SUSP 30 ML UDC PO PRN (16:25)
[2024-12-05] MEDS ORDERED: DO NOT ADMINISTER PNEUMOCOCCAL VACCINE PRN (16:25)
[2024-12-05] MEDS ORDERED: ACETAMINOPHEN 1,000 MG/100 ML VIAL IV PRN (16:25)
[2024-12-05] MEDS ORDERED: FAMOTIDINE 20 MG TAB PO PRN (16:25)
[2024-12-05] MEDS ORDERED: DO NOT ADMINISTER FLU VACCINE PRN (16:25)
[2024-12-05] MEDS ORDERED: HYDROmorphone INJ 0.5 MG/0.5 ML SYR IV PRN (16:25)
[2024-12-05] MEDS ORDERED: PROMETHAZINE 12.5 MG/50.5 ML BAG IV PRN (16:25)
[2024-12-05] MEDS ORDERED: NALOXONE HCL 0.4 MG/1 ML VIAL/CARP IV PRN (16:25)
[2024-12-05] MEDS ORDERED: diphenhydrAMINE Capsule 25 MG CAP PO PRN (16:25)
[2024-12-05] MEDS ORDERED: HYDROmorphone INJ 1 MG/ML SYRINGE IV PRN (16:25)
[2024-12-05] MEDS ORDERED: SOD PHOSPHATE/SOD BIPHOSPHATE ENEMA 132 ML BTL PR PRN (16:25)
[2024-12-05] MEDS ORDERED: LORazepam 0.5 MG TAB PO PRN (16:25)
--- NOTE | 2024-12-05 17:26 | Consultation ---
Date of Consultation December 05, 2024 Assessment & Plan (1) S/P spinal surgery: (2) Neurogenic claudication due to lumbar spinal stenosis: Post op day# 0 S/P L2-L3 decompression fusion by Dr Kenney EBL# 200ml Pain management per ortho Wound management per ortho PT/OT as appropriate DVT prophylaxis per ortho Incentive spirometry Monitor H&H for acute blood loss anemia; pre-op hgb: 14 (3) Bipolar depression: Continue home bupropion, clozapine, sertraline, topiramate Will hold trazodone for now, as drowsy after anesthesia (4) Stage 3 chronic kidney disease: Baseline Cr: 1.2 per outpatient chart review Monitor renal functions, avoid nephrotoxic agents when possible (5) Hyperlipidemia: Continue home simvastatin (6) GERD (gastroesophageal reflux disease): Continue PPI DVT Prophylaxis SCDs Disposition per primary service Follows with Dr Seb Melchor [facility] for routine care Pt was seen and care coordinated with Dr Rodriguez. See addendum Thank you for this consultation. We will follow the patient with you during their hospital stay. You can reach a member of the [facility]ist Team 06/11 via [employer] History of Present Illness Requesting Physician: Dr Kenney Reason for Consultation: Post op medical management Attending Physician: Sean Kenney, DO History of Present Illness Patient is 63 year old female with PMH HLD, GERD, bipolar disorder seen in medical consultation s/p L2-L3 decompression & fusion today by Dr Kenney. Post op patient reports having some low back pain. States prior to surgery she was having bilateral lower leg paresthesias and bilateral leg pain. Currently she states not having BLE pain or paresthesias. Hasn't urinated yet since coming to floor. Last BM last night. Reports intermittent constipation and alternating loose stools at baseline. Denies fever/chills, BELLO, dizziness, CP, SOB, cough, rhinorrhea, abdominal pain, paresthesias, weakness, extremity edema, rashes, urinary symptoms. Allergies Allergy/AdvReac Type Severity Reaction Status Date / Time metoclopramide [From Reglan] Allergy Severe Seizure-like Verified 12/05/24 09:38 activity Penicillins Allergy Intermediate Rash Verified 12/05/24 09:38 propoxyphene [From Darvon] Allergy Intermediate Rash Verified 12/05/24 09:38 Home Medications Medication Instructions Recorded Confirmed Type clozapine 100 mg tablet (Clozaril) 100 mg PO HS 02/18/19 12/05/24 History omeprazole 20 mg tablet,delayed 20 mg PO QAM 02/18/19 12/05/24 History release sertraline 100 mg tablet 200 mg PO QAM 02/18/19 12/05/24 History simvastatin 40 mg tablet (Zocor) 40 mg PO QPM 02/18/19 12/05/24 History topiramate 50 mg tablet (Topamax) 50 mg PO BID 02/18/19 12/05/24 History bupropion HCl 200 mg tablet,12 hr 200 mg PO BID 12/05/24 12/05/24 History sustained-release (Wellbutrin SR) trazodone 100 mg tablet 100 mg PO HS PRN Insomnia 12/05/24 12/05/24 History Patient History Medical History Obesity GERD (gastroesophageal reflux disease) Per records Hyperlipidemia Per records Chronic back pain [facility] Stage 3 chronic kidney disease IBS (irritable bowel syndrome) Bipolar disorder Degenerative disc disease Osteoarthritis Neurogenic bladder Hx requiring straight cath No recent issues/no longer needs to straight cath Anxiety and depression Hx of migraines Surgical History History of hernia repair History of lumbar surgery L3-S1 decompression/fusion (2019) History of bilateral tubal ligation History of section x1 History of total knee replacement Right History of esophagogastroduodenoscopy (EGD) History of colonoscopy History of cholecystectomy History of appendectomy History of tooth extraction No dentures Family History Mother Family history of diabetes mellitus Grandmother (Paternal) Family hx of colon cancer Social History Smoking Status: Never smoker Second Hand Exposure: No; Do You Dip or Chew Tobacco: No; Tobacco Cessation Education Requested by Patient: No Hx Alcohol Use: No Hx Substance Use: No Preferred Language: Tuvaluan Communication Ability: Effective Electrician'S Assistant Required: No Beliefs That Will Affect Care: None Current Living Situation: Alone Other Information That Helps Us Care for You: No Feels Safe at Home: Yes Safety Concerns: Feels Safe At This Time Assistive Devices: Walker Review of Systems Review of Systems: All systems reviewed & are unremarkable except as noted in HPI & below Physical Exam Physical Exam: General: no distress, WDWN Head: normocephalic, atraumatic Eyes: conjunctiva non-injected, anicteric ENT: normal inspection external ears, nose, mucous membranes moist Neck: supple, trachea midline Lungs: clear, no respiratory distress, no wheezing/rhonchi/rales CV: RRR, no murmur, no pretibial edema Abd: normal BS, soft, non-tender Back: surgical dressing in place, dry and intact. +VERENICE drain with serosanguineous drainage Ext: no cyanosis, no calf tenderness Neuro: A&O x 3, +drowsy Skin: warm, dry Results & Data Vital Signs (Past 12 Hours) Vital Signs Temp Pulse Pulse Resp BP Pulse Ox O2 Del Method 12/05/24 16:55 36.6 C 74 16 133/89 99 Nasal Cannula 12/05/24 16:25 36.6 C 78 16 130/90 99 Nasal Cannula 12/05/24 15:30 74 14 114/72 98 Nasal Cannula 12/05/24 15:00 73 15 106/66 98 Nasal Cannula 12/05/24 14:45 74 17 115/71 97 Nasal Cannula 12/05/24 14:30 79 18 122/90 95 Nasal Cannula 12/05/24 14:15 70 14 124/80 99 Nasal Cannula 12/05/24 14:00 71 24 118/82 98 Oxymask 12/05/24 13:50 66 16 109/81 99 Oxymask 12/05/24 13:40 71 16 116/78 100 Oxymask 12/05/24 13:30 75 15 108/72 99 Oxymask 12/05/24 13:20 77 13 118/81 98 Oxymask 12/05/24 13:10 75 17 125/82 98 Oxymask 12/05/24 13:00 74 13 117/71 99 Oxymask 12/05/24 12:50 73 13 114/71 99 Oxymask 12/05/24 12:40 73 15 114/72 99 Oxymask 12/05/24 12:31 36 C L 76 18 100/64 96 Oxymask 12/05/24 09:22 36.5 C 82 22 140/100 98 Room Air O2 Flow Rate 12/05/24 16:55 2 12/05/24 16:25 2 12/05/24 15:30 2 12/05/24 15:00 2 12/05/24 14:45 2 12/05/24 14:30 2 12/05/24 14:15 2 12/05/24 14:00 2 12/05/24 13:50 2 12/05/24 13:40 4 12/05/24 13:30 4 12/05/24 13:20 4 12/05/24 13:10 4 12/05/24 13:00 4 12/05/24 12:50 8 12/05/24 12:40 8 12/05/24 12:31 8 12/05/24 09:22 Laboratory Results Short CBC 12/05/24 Range/Units 17:01 WBC 11.80 H (4.8-10.8) K/ul Hgb 12.8 (12.0-16.0) g/dl Hct 37.5 (37.0-47.0) % Plt Count 226 (130-400) K/uL
[2024-12-05 17:45] LABS: Hematocrit (blood only) 37.5 % (37.0-47.0); Hemoglobin 12.8 g/dl (12.0-16.0); Mean Corpuscular Hemoglobin 29.9 pg (25.0-34.0); Mean Corpuscular Volume 87.6 fL (80.0-100.0); Platelet Count 226 K/uL (130-400); RDW Standard Deviation 42.2 fL (36.4-46.3); Red Blood Count 4.28 M/uL (4.20-5.40); White Blood Count 11.80 K/ul (4.8-10.8)
[2024-12-05] MEDS: CLINDAMYCIN/D5W 600 MG/50 ML BAG IV SCH (18:10)
[2024-12-05 18:43] LABS: Immature Granulocytes # (auto) 0.06 K/uL (0.01-0.20); Immature Granulocytes % (auto) 0.5 %
[2024-12-05] MEDS: DOCUSATE SODIUM/SENNA 50/8.6MG TAB PO SCH (20:26)
[2024-12-05] MEDS: TOPIRAMATE 50 MG TAB PO SCH (20:27)
[2024-12-05] MEDS: SIMVASTATIN 40 MG TAB PO SCH (20:27)
[2024-12-06] MEDS: POLYETHYLENE (MIRALAX) 17 GM PACK PO SCH (05:42)
[2024-12-06 06:33] LABS: Hematocrit (blood only) 35.0 % (37.0-47.0); Hemoglobin 12.0 g/dl (12.0-16.0); Immature Granulocytes # (auto) 0.04 K/uL (0.01-0.20); Immature Granulocytes % (auto) 0.3 %; Mean Corpuscular Hemoglobin 30.1 pg (25.0-34.0); Mean Corpuscular Volume 87.7 fL (80.0-100.0); Platelet Count 242 K/uL (130-400); RDW Standard Deviation 42.1 fL (36.4-46.3); Red Blood Count 3.99 M/uL (4.20-5.40); White Blood Count 13.28 K/ul (4.8-10.8)
[2024-12-06 06:52] LABS: Anion Gap 7.0 (3-11); Blood Urea Nitrogen 12.0 mg/dl (6-23); Calcium 8.7 mg/dl (8.6-10.3); Carbon Dioxide 23.0 mmol/L (21-32); Chloride 111.0 mmol/L (98-107); Creatinine Clr Calc Pharmacy 56.4 ml/min; Glucose 116.0 mg/dl (70-99(Fasting)); Potassium 4.0 mmol/L (3.5-5.1); Sodium 141.0 mmol/L (136-145)
[2024-12-06] MEDS: SERTRALINE HCL 100 MG TABLET PO SCH (09:05)
--- NOTE | 2024-12-06 09:50 | Orthopedic Progress Note ---
Date of Service December 06, 2024 Assessment & Plan (1) Neurogenic claudication due to lumbar spinal stenosis: Plan: At this time initiate physical therapy occupational therapy. Monitor progress. Anticipate discharge to rehab in the next few days. Admission and Anticipated Discharge Date Admission Date: December 05, 2024 Subjective Back pain controlled leg pain improved Physical Exam Physical Exam: Patient is currently in bed. Discomfort is constricted testing. Results & Data Vital Signs (Past 12 Hours) Vital Signs Temp Pulse Resp BP Pulse Ox O2 Del Method O2 Flow Rate 12/06/24 08:00 Nasal Cannula 2 12/06/24 07:50 36.6 C 79 16 114/74 97 Nasal Cannula 2 12/06/24 03:25 36.4 C L 75 18 113/76 99 Nasal Cannula 2 12/05/24 23:36 36.7 C 75 18 108/71 96 Nasal Cannula 2 Queries Orthopedic Spine Obesity: Yes
--- NOTE | 2024-12-06 10:21 | Hospitalist Progress Note ---
Date of Service December 06, 2024 Assessment & Plan (1) S/P spinal surgery: (2) Neurogenic claudication due to lumbar spinal stenosis: Plan: Post op day# 1 S/P L2-L3 decompression fusion by Dr Kenney Per ortho for pain control, wound care, anticoagulation and activities Monitor H&H (EBL 200ml, hgb stable at 12 today (from pre-op hgb 12.8) Continue incentive spirometry, PT/OT when appropriate Urine retention overnight, post-anesthesia. Straight cathed for 1,500ml. Discussed with RN, bladder scan Qshift (3) Bipolar depression: Plan: Continue home bupropion, clozapine, sertraline, topiramate Will hold trazodone while drowsy and receiving opioids (4) Stage 3 chronic kidney disease: Plan: Baseline Cr: 1.2 per outpatient chart review Monitor renal functions, avoid nephrotoxic agents when possible (5) Hyperlipidemia: Plan: Continue home simvastatin (6) GERD (gastroesophageal reflux disease): Plan: Continue PPI DVT Prophylaxis: SCDs PCP: Jill ([facility] for routine care) Disposition: per primary service Care coordinated with Dr. Christianson. I spent a total of 35 minutes coordinating, documenting, and providing care for this patient excluding time spent in the performance of separately billed services or time spent by another provider/QHP. Thank you for this consultation. We will follow the patient with you during their hospital stay. You can reach a member of the [facility] Hospitalist Team 06/11 via [employer] Admission and Anticipated Discharge Date Admission Date: December 05, 2024 Supervising Physician Co-Signing Physician Notes Patient is seen and examined at bedside. Denies any significant lower back pain at surgical site. Was noted to have some urinary retention by RN. Patient denies any chest pain, dyspnea, nausea, vomiting, abdominal pain. Noted leukocytosis but afebrile today. On exam patient is moderately built and nourished, no apparent distress, normocephalic atraumatic, EOMI, normal breath sounds, clear to auscultation, S1-S2, no murmur, no pedal edema, abdomen soft, nontender, normal bowel sounds, alert, awake, oriented, grossly no focal deficits, Back-surgical site in dressing, drain. Patient is consulted for postop medical management. Patient had lumbar decompression, fusion surgery for lumbar spondylosis with radiculopathy and neurogenic claudication due to lumbar spinal stenosis. Pain management, activity, wound care, DVT prophylaxis as per primary team. Continue bowel regimen to prevent constipation. Monitor CBC. Patient likely has reactive leukocytosis, monitor. Continue home medications for mood disorder, hyperlipidemia, GERD. I personally interviewed and examined the patient at bedside. I have reviewed the advanced practitioner's documentation on the date of service referred in note and agree with plan. Patient's care is coordinated with Lluvia Mcdonald PA-C. Please refer to the documentation above for details of patient's presentation and for discussion of other issues. I spent a total [id number] coordinating, documenting, and providing care for this patient excluding time spent in the performance of separately billed services or time spent by another provider/QHP. Subjective Seen and examined in 320-1. Feeling well post op. Some surgical site discomfort but denies new pain or paresthesias in BUE. Tolerating clears for breakfast without issue. Urinary retention overnight - was straight cathed for 1,500ml. No F/C, N/V, chest pain, SOB, dysuria. No post op flatus yet. Review of Systems Review of Systems: At least ten systems reviewed and negative except as noted in the HPI. Physical Exam Physical Exam: Gen: WD/WN, NAD, resting in bed comfortably, A&Ox3 HEENT: Normocephalic, atraumatic, mucous membranes moist Lung: Clear to Auscultation bilaterally Heart: Regular rate, regular rhythm Abdomen: Soft, NT, ND +BS x 4 Extremities: Spinal dressing c/d/i, VERENICE drain with serosanguineous output Skin: Warm, no rash Results & Data Results & Data Vital Signs (Past 12 Hours) Vital Signs Temp Pulse Resp BP Pulse Ox O2 Del Method O2 Flow Rate 12/06/24 08:00 Nasal Cannula 2 12/06/24 07:50 36.6 C 79 16 114/74 97 Nasal Cannula 2 12/06/24 03:25 36.4 C L 75 18 113/76 99 Nasal Cannula 2 12/05/24 23:36 36.7 C 75 18 108/71 96 Nasal Cannula 2 Laboratory Results Short CBC 12/05/24 12/06/24 Range/Units 17:01 05:51 WBC 11.80 H 13.28 H (4.8-10.8) K/ul Hgb 12.8 12.0 (12.0-16.0) g/dl Hct 37.5 35.0 L (37.0-47.0) % Plt Count 226 242 (130-400) K/uL [facility] 12/06/24 05:51 Sodium 141 Potassium 4.0 Chloride 111 H Carbon Dioxide 23 BUN 12 Creatinine 1.01 Glucose 116 H Calcium 8.7
[2024-12-06] MEDS: ACETAMINOPHEN 500 MG TAB PO PRN (15:50)
[2024-12-07 06:41] LABS: Hematocrit (blood only) 33.0 % (37.0-47.0); Hemoglobin 10.9 g/dl (12.0-16.0); Mean Corpuscular Hemoglobin 29.3 pg (25.0-34.0); Mean Corpuscular Volume 88.7 fL (80.0-100.0); Platelet Count 199 K/uL (130-400); RDW Standard Deviation 44.3 fL (36.4-46.3); Red Blood Count 3.72 M/uL (4.20-5.40); White Blood Count 10.22 K/ul (4.8-10.8)
[2024-12-07 07:12] LABS: Anion Gap 6.0 (3-11); Blood Urea Nitrogen 12.0 mg/dl (6-23); Calcium 8.4 mg/dl (8.6-10.3); Carbon Dioxide 24.0 mmol/L (21-32); Chloride 112.0 mmol/L (98-107); Creatinine Clr Calc Pharmacy 54.8 ml/min; Glucose 94.0 mg/dl (70-99(Fasting)); Potassium 3.6 mmol/L (3.5-5.1); Sodium 142.0 mmol/L (136-145)
--- NOTE | 2024-12-07 08:32 | Orthopedic Progress Note ---
Date of Service December 07, 2024 Assessment & Plan (1) Neurogenic claudication due to lumbar spinal stenosis: Plan: Patient is stable postoperative #2. Will continue GI DVT prophylaxis and pain control measures. She will work with physical therapy to help improve her strength. Will work with social work to get her into a detention facility. Admission and Anticipated Discharge Date Admission Date: December 05, 2024 Subjective Patient is seen bedside in room 320. She is awake. She appears comfortable. States that she had difficulties trying to get out of bed yesterday secondary to weakness in her legs. She is not having uncontrolled pain. She has been tolerating p.o. She understands that she is going to need detention facility placement. She denies any other numbness, tingling, or paresthesias. Physical Exam Physical Exam: On exam she is alert and oriented. She answers questions appropriately. She is able to move her legs to gravity. Sensations intact to light touch. Calves are supple and nontender abdomen soft and nontender dressings clean dry and intact. VERENICE drain is in place is placed out 70 cc on the last recording and 40 on the previous. Results & Data Vital Signs (Past 12 Hours) Vital Signs Temp Pulse Resp BP BP Pulse Ox O2 Del Method 12/07/24 07:33 36.8 C 92 H 20 106/73 93 Room Air 12/06/24 22:18 36.7 C 93 H 16 90/52 L 94 Room Air
[2024-12-07] MEDS: CLINDAMYCIN/D5W 600 MG/50 ML BAG IV SCH (09:32)
--- NOTE | 2024-12-07 10:15 | Hospitalist Progress Note ---
Date of Service December 07, 2024 Assessment & Plan (1) S/P spinal surgery: (2) Neurogenic claudication due to lumbar spinal stenosis: Plan: Post op day#2 S/P L2-L3 decompression fusion by Dr Kenney Per ortho for pain control, wound care, anticoagulation and activities Continue incentive spirometry, PT/OT when appropriate Urine retention yesterday, post-anesthesia. Torrez catheter placed on 12/06. Consider trial of void once more mobile, plan to dc to rehab facility in next few days Acute blood loss anemia Hgb 10.9 (from 12.8 pre-op) in setting of surgery, likely dilutional factor as well Asymptomatic, no indication for transfusion Monitor with daily CBC while in-patient (3) Bipolar depression: Plan: Continue home bupropion, clozapine, sertraline, topiramate Trazodone resumed (4) Stage 3 chronic kidney disease: Plan: Baseline Cr: 1.2 per outpatient chart review Monitor renal functions, avoid nephrotoxic agents when possible (5) Hyperlipidemia: Plan: Continue home simvastatin (6) GERD (gastroesophageal reflux disease): Plan: Continue PPI DVT Prophylaxis: SCDs PCP: Jill ([facility] for routine care) Disposition: per primary service Care coordinated with Dr. Christianson. I spent a total of 30 minutes coordinating, documenting, and providing care for this patient excluding time spent in the performance of separately billed services or time spent by another provider/QHP. Thank you for this consultation. We will follow the patient with you during their hospital stay. You can reach a member of the [facility] Team 06/11 via [facility] Admission and Anticipated Discharge Date Admission Date: December 05, 2024 Supervising Physician Co-Signing Physician Notes Patient is seen and examined at bedside. Denies any significant pain at site of surgery. Offers no other complaints today. States that she would likely be going to rehab upon discharge. On exam patient is moderately built and nourished, no apparent distress, normocephalic atraumatic, EOMI, normal breath sounds, clear to auscultation, S1-S2, no murmur, no pedal edema, abdomen soft, nontender, normal bowel sounds, alert, awake, oriented, grossly no focal deficits, Back-surgical site in dressing, drain. Patient is consulted for postop medical management. Patient had lumbar decompression, fusion surgery for lumbar spondylosis with radiculopathy and neurogenic claudication due to lumbar spinal stenosis. Noted postoperative acute blood loss anemia--expected. No indication for transfusion. Pain management, activity, wound care, DVT prophylaxis as per primary team. Continue bowel regimen to prevent constipation. Monitor CBC. Leukocytosis resolved. Continue Torrez catheter for now for urinary retention. Will consider voiding trial prior to discharge. Continue home medications for mood disorder, hyperlipidemia, GERD. I personally interviewed and examined the patient at bedside. I have reviewed the advanced practitioner's documentation on the date of service referred in note and agree with plan. Patient's care is coordinated with Lluvia Mcdonald PA-C. Please refer to the documentation above for details of patient's presentation and for discussion of other issues. I spent a total [id number] coordinating, documenting, and providing care for this patient excluding time spent in the performance of separately billed services or time spent by another provider/QHP. Subjective Patient is seen bedside in room 320-1. No acute events overnight. Was able to get out of bed yesterday and work with therapy. Minimal surgical site d iscomfort. No F/C, lightheadedness, CP, SOB, N/V, abd pain. Torrez catheter placed yesterday due to urinary retention. Passing flatus post-op. Primary plans to dc to rehab in a few days. Review of Systems Review of Systems: At least ten systems reviewed and negative except as noted in the HPI. Physical Exam Physical Exam: Gen: WD/WN, NAD, resting in bed comfortably, A&Ox3 HEENT: Normocephalic, atraumatic, mucous membranes moist Lung: Clear to Auscultation bilaterally Heart: Regular rate, regular rhythm Abdomen: Soft, NT, ND +BS x 4 : + Torrez Extremities: Spinal dressing c/d/i, VERENICE drain with serosanguineous output Skin: Warm, no rash Results & Data Results & Data Vital Signs (Past 12 Hours) Vital Signs Temp Pulse Resp BP BP Pulse Ox O2 Del Method 12/07/24 07:33 36.8 C 92 H 20 106/73 93 Room Air 12/06/24 22:18 36.7 C 93 H 16 90/52 L 94 Room Air Laboratory Results Short CBC 12/07/24 Range/Units 05:54 WBC 10.22 (4.8-10.8) K/ul Hgb 10.9 L (12.0-16.0) g/dl Hct 33.0 L (37.0-47.0) % Plt Count 199 (130-400) K/uL BMP 12/07/24 05:54 Sodium 142 Potassium 3.6 Chloride 112 H Carbon Dioxide 24 BUN 12 Creatinine 1.04 Glucose 94 Calcium 8.4 L
[2024-12-08] MEDS: ONDANSETRON INJ 2 MG/ML 2 ML VIAL IV PRN (05:22)
[2024-12-08 07:15] LABS: Hematocrit (blood only) 36.8 % (37.0-47.0); Hemoglobin 12.7 g/dl (12.0-16.0); Mean Corpuscular Hemoglobin 30.2 pg (25.0-34.0); Mean Corpuscular Volume 87.6 fL (80.0-100.0); Platelet Count 230 K/uL (130-400); RDW Standard Deviation 42.5 fL (36.4-46.3); Red Blood Count 4.20 M/uL (4.20-5.40); White Blood Count 9.35 K/ul (4.8-10.8)
[2024-12-08 07:35] VITALS: RESP 17
[2024-12-08 07:50] LABS: Anion Gap 8.0 (3-11); Blood Urea Nitrogen 19.0 mg/dl (6-23); Calcium 8.7 mg/dl (8.6-10.3); Carbon Dioxide 24.0 mmol/L (21-32); Chloride 108.0 mmol/L (98-107); Creatinine Clr Calc Pharmacy 38.5 ml/min; Glucose 123.0 mg/dl (70-99(Fasting)); Potassium 3.6 mmol/L (3.5-5.1); Sodium 140.0 mmol/L (136-145)
--- NOTE | 2024-12-08 11:20 | Discharge Summary ---
Date of Service December 08, 2024 Admission HPI Per Admitting Provider This is a 63-year-old female who presents with chronic persistent back and leg pain failing course of nonoperative care is here for surgical invention. Principal Diagnosis Lumbar spinal stenosis with neurogenic claudication Discharge Data Allergies Allergy/AdvReac Type Severity Reaction Status Date / Time metoclopramide [From Reglan] Allergy Severe Seizure-like Verified 12/05/24 09:38 activity Penicillins Allergy Intermediate Rash Verified 12/05/24 09:38 propoxyphene [From Darvon] Allergy Intermediate Rash Verified 12/05/24 09:38 Consultations 12/05/24 16:25 Consult Hospitalist Routine Procedures Performed Operation Date: 12/05/24 11:05 Actual Procedures p L2-L3 Decompression and Fusion Connecting to Previous Hardware - Sean Kenney DO Ordered Studies 12/05/24 11:05 FL lumbar spine 2-3V Routine Hospital Course (1) Neurogenic claudication due to lumbar spinal stenosis: Patient underwent lumbar decompression fusion tolerated this well stay to the orthopedic floor postoperative. Postop with history of progressed appropriately. VERENICE drain decreasing. Strength improving. Pain controlled. Subsidy discharged to rehab. Discharge orders instructions from the chart for further review. Total Time Total Time Spent Total Time Spent (In Minutes): 20 minutes Discharge Plan Discharge Items Patient Disposition: Transfer Inpatient Rehab Fac Reason For Visit: Single-Level Lumbosacral Spondylosis with Radiculo Discharge Diagnosis: Lumbar spondylosis with radiculopathy Activity: As commented below Non-emergency contact: Primary Care Provider Call non-emergency contact if: you have any medication questions Follow-up/Referrals: Sis Mcgee PA [Outside Practitioners] - Diet: Regular Addtl Attending Provider Instructions: ACTIVITY RECOMMENDATIONS: SELF CARE INSTRUCTIONS AFTER THORACIC/LUMBAR FUSIONS 1. You may walk to your tolerance. It is good exercise for your legs and back. Expect some back and intermittent leg aches and pains. 2. You may perform "counter-top" level activities (make a sandwich, fatoumata with a project, etc.). 3. No bending or lifting of more than 10 pounds or back twisting of any nature (roll like a log when turning in bed). 4. You may ride in a car for 20-30 minutes at a time. No driving until after your first visit with your doctor. 5. Frequent changes of position and restricting sitting to 30 minutes at a time will help limit the amount of back spasms and stiffness you may experience. 6. You may discontinue the use of ambulatory aids (cane, crutches, etc.) once your strength and confidence allow. 7. You may materials planning manager the shower and let water strike your incision when you arrive home at least once daily. Do not take a tub bath, sit in a hot tub or go into a swimming pool until after your first recheck in the office. 8. You may resume previous diet. SPECIAL CARE INSTRUCTIONS: VERY IMPORTANT TO READ AND REVIEW A. Your surgical incision has been closed with a cosmetic suture under the skin that will dissolve in about 6 weeks. In 14 days, you can use a pair of clean scissors and cut the suture that is left outside of the skin at the ends of your incision. 1. The small skin tapes can be removed 7 days after surgery if they have not fallen off by that point. 2. You may keep the wound open to air as much as possible to promote healing after post-op day number 5 unless told otherwise by your doctor. 3. If you think the wound looks like it is becoming infected (redness or worsening drainage) and/or you are experiencing fever, chill or worsening back pain and muscle spasms, contact the office so that we may evaluate you as soon as possible. B. Complications are uncommon, but please contact us if you have any signs or symptoms of: 1. wound infection (fever higher than 102.5 degrees F, redness, separation of wound, drainage, or increasing pain from the incision) 2. blood clots in legs (pain, swelling, redness and warmth in legs) 3. urinary tract infection (fever higher than 102.5 degrees F, burning upon urination or increased frequency of urination) 4. nerve problems (inability to walk on your toes or heels, numbness, loss of bowel or bladder control) 5. any other symptoms that concern you C. Please call the office at if you have any concerns or questions about your operation or recovery. D. No smoking! Smoking drastically decreases the chance of a solid fusion. E. Do not take any anti-inflammatory medications (Indocin, Advil, Motrin, Aspirin, Naprosyn, etc.) as these may inhibit the chance of a solid fusion. Tylenol is okay to take for pain. MANAGING PAIN AFTER SPINAL SURGERY 1. Narcotic medication is intended for short-term use and will be provided for surgical pain. Surgical pain usually lasts for a period of 4-6 weeks. Narcotic medication includes Percocet, Vicodin, Darvocet, Tylenol #3 or Lortab. 2. Longer-term pain is more appropriately treated with non-narcotic medication such as Tylenol ES. 3. Muscle spasm is not appropriately treated with narcotics. Muscle relaxers such as Soma, Flexeril or Skelaxin can be used along with Tylenol ES. 4. Remember that we all live with some "aches and pains". This is not unusual or uncommon after an injury or as we get older. a. Back pain is expected and may include muscle spasms for 4 to 6 weeks after surgery. The pain should gradually improve. If the pain worsens for no apparent reason, please contact the office. b. Intermittent leg pain may also be experienced and should not be concerned about unless it worsens for no apparent reason. If so, please contact the office. 5. We will provide appropriate medication within the normal guidelines of their prescribed use. We will also be very cautious and aware of potential abuse and extended duration of patients' medication needs. a. Pain medications are for your comfort and to assist with sleep and rest so that the tissue can heal. They are not provided in order to return to normal activity and should not be used through the day. To do so or worsening pain at night can result from ongoing tissue damage and development of tolerance to the prescribed medicine. 6. Please allow 2-3 days to process refills. Prescriptions will not be mailed but must be picked up at the office. FOLLOW UP VISIT: Keep your scheduled follow-up appointment. Any questions, please call the office at . Pending Studies at Discharge: No Stand-Alone Forms: My [employer], Smoking Cessation Skilled Items Patient informed of condition?: Yes DNR: No Discharge Level of Care: Acute rehab Communicable Disease: No Discharge Prognosis: Improving Lines: None Urinary Catheter: No Medications and DC Order Prescriptions: New tramadol 50 mg tablet 50 mg PO Q6H PRN (Reason: pain, moderate) Qty: 30 0RF oxycodone 5 mg tablet 5 mg PO Q6H PRN (Reason: pain) Qty: 30 0RF Continued clozapine [Clozaril] 100 mg Tablet 100 mg PO HS sertraline 100 mg Tablet 200 mg PO QAM simvastatin [Zocor] 40 mg Tablet 40 mg PO QPM topiramate [Topamax] 50 mg Tablet 50 mg PO BID omeprazole 20 mg Tablet,Delayed Release (Dr/Ec) 20 mg PO QAM bupropion HCl [Wellbutrin SR] 200 mg tablet sustained-release 12 hr 200 mg PO BID trazodone 100 mg tablet 100 mg PO HS PRN (Reason: Insomnia) Discharge Orders: Discharge Order (Routine); Ordered 12/08/24 Ordered By: Sean Kenney Admission Data Admit Date/Time: 12/05/24 12:26 Attending Provider: Sean Kenney Admit Provider: Sean Kenney Primary Care Provider: Seb Melchor Other Providers: Tonia Coleman; Lluvia Mcdonald; Roberto Christianson; [facility]
--- NOTE | 2024-12-08 11:28 | Hospitalist Progress Note ---
Date of Service December 08, 2024 Assessment & Plan (1) S/P spinal surgery: (2) Neurogenic claudication due to lumbar spinal stenosis: Plan: Pt is a 63y/o F with PMHx significant for HLD, GERD and bipolar disorder who is being seen in consultation for routine postop medical management after undergoing elective L2-L3 decompression and fusion performed by Dr. Kenney on 12/05/24 after failing nonoperative care for neurogenic claudication 2/2 lumbar spinal stenosis. POD #3, continue pain control/wound care/anticoagulation/activities per primary service Continue ISP, PT/OT; continue prophylactic IV clindamycin as per primary service --> plan for DC to [facility] later today per (3) Acute urinary retention: Plan: Noted postop, Torrez catheter placed on 12/06/24 Maintain catheter on DC --> can perform voiding trial at [facility] once pt is more mobile (4) Acute blood loss anemia: Plan: Noted postop, Hgb drop from 12.8 preop -> 10.9 POD#2 Expected ISO surgical blood loss, likely dilutional factor contributing as well Hgb now improved back to baseline; no indication to transfuse at this time (5) Bipolar depression: Plan: Continue home psych med regimen QTc interval 453ms as of 11/17/24; no indication for telemetry monitoring at this time (6) Acute kidney injury superimposed on stage 3b chronic kidney disease: Plan: Baseline Cr ~1.2 per OP chart review Cr uptrended to 1.48 this AM Likely prerenal etiology 2/2 hypotension overnight ISO expected surgical blood loss, decreased postop po intake -Will give NSS 1L x 1 bag and repeat BMP this afternoon around 2P, avoid nephrotoxins as able -Follow Cr trend; no indication for further IP monitoring unless Cr grossly worsening on repeat labs --> can continue to follow at [facility] (recs for f/u provided in DC paperwork) (7) Hyperlipidemia: Plan: Continue simvastatin (8) GERD (gastroesophageal reflux disease): Plan: Continue PPI DVT Prophylaxis: As per primary service PCP: Seb Melchor MD [Formerly [facility]] Disposition: Routine DC planning as per primary service; anticipate DC to [facility] later this afternoon per Patient seen in collaboration with Dr. Christianson. Please see addendum. We will follow the patient with you during their hospital stay. You can reach a member of the [facility] Hospitalist Team 06/11 via [employer]. I spent a total of 34 minutes coordinating, documenting, and providing care for this patient excluding time spent in the performance of separately billed services or time spent by another provider/QHP. This included personally reviewing all current laboratories and imaging studies, medical reconciliation, outpatient chart review and discussion with specialists. This chart was completed in part utilizing Speech Voice Recognition Software. Grammatical errors, random word insertions, pronoun errors, and incomplete sentences are an occasional consequence of this system due to software limitations, ambient noise, and hardware issues. Any formal questions or concer ns about the content, text, or information contained within the body of this dictation should be directly addressed to the provider for clarification. Admission and Anticipated Discharge Date Admission Date: December 05, 2024 Supervising Physician Co-Signing Physician Notes Patient is seen and examined at bedside on day of discharge. No new complaints. Back pain at surgical site is well-controlled. VERENICE drain removed today. Plan to be discharged to rehab facility today. On exam patient is moderately built and nourished, no apparent distress, normocephalic atraumatic, EOMI, normal breath sounds, clear to auscultation, S1-S2, no murmur, no pedal edema, abdomen soft, nontender, normal bowel sounds, alert, awake, oriented, grossly no focal deficits, Back-surgical site in dressing. Patient is consulted for postop medical management. Patient had lumbar decompression, fusion surgery for lumbar spondylosis with radiculopathy and neurogenic claudication due to lumbar spinal stenosis. Noted postoperative acute blood loss anemia--expected. Hemoglobin stable. Plan to be discharged to rehab facility. Needs follow-up with PCP, surgery on discharge from rehab facility. Pain management, activity, wound care, DVT prophylaxis as per primary team. Continue bowel regimen to prevent constipation. Monitor CBC. Leukocytosis resolved. Continue Torrez catheter for now for urinary retention. Can do a voiding trial at rehab facility upon di scharge. Continue home medications for mood disorder, hyperlipidemia, GERD. Renal function improved with IV fluids. I personally interviewed and examined the patient at bedside. I have reviewed the advanced practitioner's documentation on the date of service referred in note and agree with plan. Patient's care is coordinated with Tamara Dunkleberger PA-C. Please refer to the documentation above for details of patient's presentation and for discussion of other issues. I spent a total [id number] coordinating, documenting, and providing care for this patient excluding time spent in the performance of separately billed services or time spent by another provider/QHP. Subjective Pt seen and examined in 320-1. Had a few bouts of diarrhea and stool incontinence overnight. Did have some generalized abdominal cramping with this as well but now feels these symptoms are improving. Has Torrez catheter in place 2/2 postop urinary retention - seems to be tolerating this well. Minimal surgical site discomfort. Denies any SOB, chest pain, lightheadedness/dizziness or N/V. Review of Systems Review of Systems: At least ten systems reviewed and negative except as noted in the HPI. Physical Exam Physical Exam: General: WD/WN, NAD, laying down in bed, A&Ox3, pleasant, conversing appropriately, appears comfortable HEENT: Normocephalic, atraumatic, slightly dry mucous membranes Respiratory: Normal respiratory effort, CTAB, no accessory muscle use Cardiovascular: Slightly tachycardic rate (HR ~95), regular rhythm, no BLE edema Abdomen/GI: Active bowel sounds, soft/nondistended, nontender to palpation in all quadrants Extremities/MSK: No cyanosis or clubbing, surgical dressing on low back C/D/I, VERENICE drain x 1 intact and draining serosanguineous output Neurologic: No overt focal deficits, CN's II-XI not formally tested but appear grossly intact bilaterally Results & Data Results & Data Vital Signs (Past 12 Hours) Vital Signs Temp Pulse Resp BP Pulse Ox O2 Del Method 12/08/24 07:33 37.0 C 101 H 17 127/80 95 Room Air Laboratory Results Short CBC 12/08/24 Range/Units 06:47 WBC 9.35 (4.8-10.8) K/ul Hgb 12.7 (12.0-16.0) g/dl Hct 36.8 L (37.0-47.0) % Plt Count 230 (130-400) K/uL [facility] 12/08/24 06:47 Sodium 140 Potassium 3.6 Chloride 108 H Carbon Dioxide 24 BUN 19 Creatinine 1.48 H D Glucose 123 H Calcium 8.7 (7) Hyperlipidemia Hyperlipidemia type: unspecified Qualified Code(s): E78.5 - Hyperlipidemia, unspecified (8) GERD (gastroesophageal reflux disease) Esophagitis presence: esophagitis presence not specified Qualified Code(s): K21.9 - Gastro-esophageal reflux disease without esophagitis
[2024-12-08] MEDS: SODIUM CHLORIDE 0.9% 1,000 ML IV SCH (12:13)
[2024-12-08 12:48] VITALS: PULSE 106; TEMP 98.1; O2SAT 93
[2024-12-08 15:11] LABS: Anion Gap 10.0 (3-11); Blood Urea Nitrogen 21.0 mg/dl (6-23); Calcium 8.6 mg/dl (8.6-10.3); Carbon Dioxide 22.0 mmol/L (21-32); Chloride 108.0 mmol/L (98-107); Creatinine Clr Calc Pharmacy 41.6 ml/min; Glucose 122.0 mg/dl (70-99(Fasting)); Potassium 3.7 mmol/L (3.5-5.1); Sodium 140.0 mmol/L (136-145)
[2024-12-08 15:36] VITALS: BP 127/80
== END 2024-12-08 16:11 | DRG 402 ==
LOC: ASU 08:55 → 3E 12:26